=== PATIENT | male | born 1950 | race Caucasian/White ===

== ENCOUNTER 2022-01-02 06:51 | Inpatient (IN) | payer MEDICARE, BC, OTHER, SELFPAY ==
[2022-01-02] VITALS (9 sets, daily range): BP systolic 124–157; BP diastolic 64–82; PULSE 53–104; RESP 11–22; TEMP 35.8–37.3; O2SAT 92–100; BMI 34.0
--- NOTE | 2022-01-02 06:51 | ED.GIBLEED ---
HPI - GI Bleed General Chief complaint: Nausea/Vomiting/Diarrhea Stated complaint: Gi Bleed Time Seen by Provider: 01/02/22 06:51 History of Present Illness HPI Narrative: 71M nonsmoker medical history sleep apnea on CPAP, GERD, hyperlipidemia, hypothyroid, gout, allergic rhinitis with history of esophageal dilatation, hypertension with recent presentation to [facility] for dysphagia presents by EMS in guarded condition. He was feeling a bit dizzy and under the weather yesterday and this morning has had multiple episodes of bright red emesis. On arrival EMS found stable blood pressure but patient was diaphoretic, pale, surrounded by blood and with heart rate in the 40s, this has improved by his arrival here. He reports no alcohol history and denies the use of any blood thinners or NSAIDs. He denies any history of liver disease or known esophageal varices. He denies any history of the same. He is feeling a bit short of breath and lightheaded but denies any chest pain. Review of Systems Review of Systems Narrative: GENERAL: See HPI HEENT: Denies sinus pain, ear pain, sore throat, difficulty swallowing, dizziness. RESPIRATORY: Denies dyspnea, cough, wheezing, hemoptysis, sputum. CARDIOVASCULAR: Denies chest pain, palpitations, orthopnea, edema, GASTROINTESTINAL: See HPI : Denies dysuria, frequency, incontinence, hematuria, urinary retention. MUSCULOSKELETAL: denies weakness, joint pain, or bony pain SKIN: Denies rash, skin lesions, or other NEUROLOGIC: See HPI PSYCHIATRIC: No concerning psychosocial issues. 12 point review of systems is negative except for those stated above Patient History Social History Smoking Status: Never smoker Exam Narrative Exam Narrative: GENERAL: [71] year old patient appears stated age. Well-developed patient, in obvious distress, clearly not feeling well, slightly pale and covered in fresh blood with fresh clots HEAD: Atraumatic. Normocephalic. EYES: Pupils equal round and reactive. Extraocular motions intact. No scleral icterus. No injection or drainage. ENT: Nose without bleeding, purulent drainage. Throat without erythema, tonsillar hypertrophy or exudate. Airway patent. NECK: Trachea midline. Non tender CARDIOVASCULAR: Regular rate and rhythm without murmurs, gallops, or rubs. RESPIRATORY: Clear to auscultation. Breath sounds equal bilaterally. No wheezes, rales, or rhonchi. GASTROINTESTINAL: Abdomen soft, minimal tenderness in the epigastrium, nondistended. EXTREMITIES: No edema or joint tenderness. BACK: Nontender without deformity or crepitance. No flank tenderness. NEURO: AOx3. SKIN: No rash or erythema of visible areas Initial Vital Signs Initial Vital Signs: Vital Signs Temperature 98.8 F 01/02/22 06:57 Pulse Rate 75 01/02/22 06:57 Respiratory Rate 22 01/02/22 06:57 Blood Pressure 157/75 H 01/02/22 06:57 Pulse Oximetry 94 01/02/22 06:57 Oxygen Delivery Method 01/02/22 06:57 Course Course Course Narrative: 0725 -records obtained from [facility], there is reference to EGD from May with diagnosis of GERD, no mention of ulcers or varices Orders Ordered: ED Orders 01/02/22 07:04 Complete Blood Count AUTO DIFF Stat Comprehensive Metabolic Panel Stat Lactate (Lactic Acid) Stat Partial Thromboplastin Time Stat Prothrombin Time INR Stat Troponin & CK Cardiac Panel Stat Type and Screen Stat 01/02/22 07:06 COVID19 -Nasal RAPID/Pre-Proc Stat 01/02/22 08:16 Consult to General Surgery Routine 01/02/22 08:30 HH [Hemoglobin and Hematocrit] Stat 01/03/22 05:00 BMP [Basic Metabolic Panel] DAILY CBC Auto Diff [Complete Blood Count AUTO DIFF] DAILY 01/04/22 05:00 BMP [Basic Metabolic Panel] DAILY CBC Auto Diff [Complete Blood Count AUTO DIFF] DAILY 01/05/22 05:00 BMP [Basic Metabolic Panel] DAILY CBC Auto Diff [Complete Blood Count AUTO DIFF] DAILY Acetaminophen (Acetaminophen 325 Mg Tablet) 650 mg PO Q6HR PRN PRN Reason: Fever/Mild Pain (1-3) Ondansetron HCl (Ondansetron 4 Mg/2 Ml Inj) 4 mg IV Q6HR CHRISTIANO Pantoprazole Sodium (Pantoprazole 40 Mg Vial) 40 mg IV BID CHRISTIANO Polyethylene Glycol (Polyethylene Glycol 3350 17 Gm Powd.Pack) 17 gm PO DAILY PRN PRN Reason: Constipation Sennosides (Sennosides 8.6 Mg Tablet) 8.6 mg PO BID PRN PRN Reason: Constipation Discontinued Medications Ceftriaxone Sodium 2,000 mg/ (Sodium Chloride) 100 mls @ 200 mls/hr IV NOW ONE Stop: 01/02/22 08:12 Ondansetron HCl (Ondansetron 4 Mg/2 Ml Inj) 4 mg IV NOW ONE Stop: 01/02/22 06:52 Last Admin: 01/02/22 07:07 Dose: 4 mg Pantoprazole Sodium (Pantoprazole 40 Mg Vial) 80 mg IV NOW ONE Stop: 01/02/22 06:52 Last Admin: 01/02/22 07:07 Dose: 80 mg Reevaluation(s) Reevaluation #1: patient had one episode of hematemesis here with about 100mL of dark blood, patient feels better afterwards Consultations Consultation #1: Discussed with on-call General surgery (Dr. Melissa), request patient remain NPO, on PPI, admission to hospitalist and he can likely take him to endoscopy suite around lunch Consultation #2: Hospitalist happy to accept Vital Signs Vital signs: Vital Signs - 8 hr 01/02/22 06:57 01/02/22 07:12 Temperature 98.8 F Pulse Rate 75 71 Respiratory Rate 22 16 Blood Pressure 157/75 H 140/70 Pulse Oximetry 94 94 Oxygen Delivery Method Room Air Room Air MDM - GI Bleed Lab Data Result diagrams: 01/02/22 07:04 01/02/22 07:04 Labs: Lab Results 01/02/22 01/02/22 01/02/22 Range/Units 07:04 07:04 07:04 WBC 10.0 (4.5-11.0) X10^3/uL RBC 4.14 L (4.5-5.9) X10^6/uL Hgb 12.6 L (13.5-17.5) g/dL Hct 37.5 L (41-53) % MCV 90.6 (80-100) fL MCH 30.4 (26-34) PG MCHC 33.6 (30-36) % RDW 13.3 (11.6-14.8) % Plt Count 246 (150-400) X10^3/uL Neut % (Auto) 76.5 H (50-75) % Lymph % (Auto) 15.7 L (25-40) % [place] % (Auto) 6.5 (3-14) % Eos % (Auto) 1.1 L (2-4) % Baso % (Auto) 0.2 (0-2) % Neut # (Auto) 7700 H (9746-2003) /uL Lymph # (Auto) 1600 (4772-6403) /uL [place] # (Auto) 600 (0-900) /uL Eos # (Auto) 100 (0-450) /uL Baso # (Auto) 0 (0-100) /uL PT 12.9 H (10.1-12.7) SECONDS INR 1.1 (0.9-1.3) APTT 24 L (26-36) SECONDS Sodium 135 L (137-145) mmol/L Potassium 3.8 (3.4-5.1) mmol/L Chloride 102 (98-107) mmol/L Carbon Dioxide 24 (22-32) mmol/L BUN 32 H (9-20) mg/dL Creatinine 1.07 (0.66-1.25) mg/dL Estimated GFR > 60 (>60) mL/min BUN/Creatinine Ratio 29.9 H (6-22) Glucose 165 H (80-110) mg/dL Lactate (0.7-2.1) mmol/L Calcium 8.0 L (8.4-10.2) mg/dL Total Bilirubin 0.7 (0.2-1.3) mg/dL AST 33 (17-59) IU/L ALT 19 (<50) IU/L Alkaline Phosphatase 59 (38-126) U/L Total Creatine Kinase 95 (55-170) U/L CK-MB (CK-2) TNP CK-MB (CK-2) Rel Index TNP Troponin I < 0.012 (0.01-0.034) ng/mL Total Protein 6.7 (6.3-8.2) g/dL Albumin 3.8 (3.5-5.0) g/dL Globulin 2.9 (1.7-4.1) g/dL Albumin/Globulin Ratio 1.3 (1.0-2.8) SARS-CoV-2 (PCR) (Negative) Blood Type Antibody Screen 01/02/22 01/02/22 01/02/22 Range/Units 07:04 07:04 07:06 WBC (4.5-11.0) X10^3/uL RBC (4.5-5.9) X10^6/uL Hgb (13.5-17.5) g/dL Hct (41-53) % MCV (80-100) fL MCH (26-34) PG MCHC (30-36) % RDW (11.6-14.8) % Plt Count (150-400) X10^3/uL Neut % (Auto) (50-75) % Lymph % (Auto) (25-40) % [place] % (Auto) (3-14) % Eos % (Auto) (2-4) % Baso % (Auto) (0-2) % Neut # (Auto) (8016-6600) /uL Lymph # (Auto) (8637-0798) /uL [place] # (Auto) (0-900) /uL Eos # (Auto) (0-450) /uL Baso # (Auto) (0-100) /uL PT (10.1-12.7) SECONDS INR (0.9-1.3) APTT (26-36) SECONDS Sodium (137-145) mmol/L Potassium (3.4-5.1) mmol/L Chloride (98-107) mmol/L Carbon Dioxide (22-32) mmol/L BUN (9-20) mg/dL Creatinine (0.66-1.25) mg/dL Estimated GFR (>60) mL/min BUN/Creatinine Ratio (6-22) Glucose (80-110) mg/dL Lactate 2.8 H (0.7-2.1) mmol/L Calcium (8.4-10.2) mg/dL Total Bilirubin (0.2-1.3) mg/dL AST (17-59) IU/L ALT (<50) IU/L Alkaline Phosphatase (38-126) U/L Total Creatine Kinase (55-170) U/L CK-MB (CK-2) CK-MB (CK-2) Rel Index Troponin I (0.01-0.034) ng/mL Total Protein (6.3-8.2) g/dL Albumin (3.5-5.0) g/dL Globulin (1.7-4.1) g/dL Albumin/Globulin Ratio (1.0-2.8) SARS-CoV-2 (PCR) Negative (Negative) Blood Type A Positive Antibody Screen Negative Discharge Plan Departure Patient Disposition: Admitted as Observation Clinical Impression: Acute upper GI bleed Admit Date/Time: 01/02/22 08:15 Admit Provider: Nelson Curiel
[2022-01-02] MEDS: PANTOPRAZOLE 40 MG VIAL 80 MG IV (07:07)
[2022-01-02] MEDS: ONDANSETRON 4 MG/2 ML INJ IV ×4 (07:07→23:30)
[2022-01-02 07:12] LABS: Add Manual Diff / Slide Review NO; Basophils Absolute Auto 0 /uL (0-100); Basophils Percent Auto 0.2 % (0-2); Eosinophils Absolute Auto 100 /uL (0-450); Eosinophils Percent Auto 1.1 % (2-4); Hematocrit 37.5 % (41-53); Hemoglobin 12.6 g/dL (13.5-17.5); Lymphocytes Absolute Auto 1600 /uL (1100-4500); Lymphocytes Percent Auto 15.7 % (25-40); Mean Corpuscular HGB Conc 33.6 % (30-36); Mean Corpuscular Hemoglobin 30.4 PG (26-34); Mean Corpuscular Volume 90.6 fL (80-100); Monocytes Absolute Auto 600 /uL (0-900); Monocytes Percent Auto 6.5 % (3-14); Neutrophils Absolute Auto 7700 /uL (1500-7000); Neutrophils Percent Auto 76.5 % (50-75); Platelet Count 246 X10^3/uL (150-400); Red Blood Cell Count 4.14 X10^6/uL (4.5-5.9); Red Cell Distribution Width 13.3 % (11.6-14.8)
[2022-01-02 07:19] LABS: INR 1.1 (0.9-1.3); Prothrombin Time 12.9 SECONDS (10.1-12.7)
[2022-01-02 07:21] LABS: PTT Partial Thromboplastin Tim 24 SECONDS (26-36)
[2022-01-02 07:23] LABS: Lactate (Lactic Acid) 2.8 mmol/L (0.7-2.1)
[2022-01-02 07:25] LABS: Alanine Aminotransferase 19 IU/L (<50); Albumin 3.8 g/dL (3.5-5.0); Albumin Globulin Ratio 1.3 (1.0-2.8); Alkaline Phosphatase 59 U/L (38-126); Aspartate Aminotransferase 33 IU/L (17-59); BUN Creatinine Ratio 29.9 (6-22); Bilirubin Total 0.7 mg/dL (0.2-1.3); Blood Urea Nitrogen 32 mg/dL (9-20); Carbon Dioxide 24 mmol/L (22-32); Chloride 102 mmol/L (98-107); Creatine Kinase 95 U/L (55-170); Estimated Glomerular Filt Rate > 60 mL/min (>60); Globulin 2.9 g/dL (1.7-4.1); Glucose 165 mg/dL (80-110); Potassium 3.8 mmol/L (3.4-5.1); Sodium 135 mmol/L (137-145); Total Protein 6.7 g/dL (6.3-8.2)
[2022-01-02 07:27] LABS: HEMOLYSIS 76 (0-50)
[2022-01-02 07:35] LABS: Troponin I < 0.012 ng/mL (0.01-0.034)
[2022-01-02 07:36] LABS: COVID19 -Nasal RAPID Negative (Negative)
--- NOTE | 2022-01-02 08:21 | P.HP_ITS ---
History of Present Illness History of Present Illness Date Patient Seen: 01/02/22 Time Patient Seen: 16:00 Chief complaint: Gi Bleed Narrative: Carrington García is a 71-year-old male past medical history of esophageal stricture s/p dilation in May 2021, GERD, COLT, hypothyroidism, hyperlipidemia and hypertension who presents with hemoptysis, throat swelling and hematemesis. Patient notes he first developed hemoptysis of bright red blood 2 days ago and has also had swelling of his tongue and throat for the past week. Yesterday he then had multiple episodes of maroon colored vomitus. Patient is not on anticoagulants. Denies any difficulty breathing. No history of stomach ulcers. Denies any abdominal pain or nausea. Is at the bedside who also states for the past several weeks he has had a ?rattling in his chest? with breathing. He denies difficulty swallowing but reports some speech difficulty and that his voice is muffled. Patient History Comment: esophageal stricture s/p dilation in May 2021, GERD, COLT, hypothyroidism, hyperlipidemia and hypertension Family & Social History Safety & Behavioral: Feels Safe in Current Yes Environment Been Physically Hurt or No Threatened By a Person Tobacco & Substance use: Smoking Status Never smoker Substance Use Type does not use Meds Home Medications and Allergies Allergies Allergy/AdvReac Type Severity Reaction Status Date / Time codeine Allergy Intermediate Vomiting Verified 01/02/22 09:54 Review of Systems Review of Systems Narrative: All other systems reviewed with the patient and are negative unless otherwise stated. Exam Vital Signs (past 8 hours): - 01/02/22 06:57 01/02/22 07:12 Temperature 98.8 F Pulse Rate 75 71 Respiratory Rate 22 16 Blood Pressure 157/75 H 140/70 Pulse Oximetry 94 94 Oxygen Delivery Method Room Air Room Air Oxygen Delivery Method Room Air Narrative Exam Narrative: GEN: no acute distress, voice is muffled HEENT: moist mucous membranes, PERRL, no abnormality on visualization of posterior pharynx NECK: Bilateral fullness of the neck without pain to palpation CV: regular rate and rhythm, no murmurs PULM: clear bilaterally ABD: soft, nontender, nondistended, no organomegaly EXT: warm and well perfused with no edema NEURO: awake, alert, oriented, no focal deficits Objective Labs Result Diagrams: 01/02/22 08:24 01/02/22 07:04 Labs: Laboratory Results - last 24 hr 01/02/22 01/02/22 01/02/22 07:04 07:04 07:04 WBC 10.0 RBC 4.14 L Hgb 12.6 L Hct 37.5 L MCV 90.6 MCH 30.4 MCHC 33.6 RDW 13.3 Plt Count 246 Neut % (Auto) 76.5 H Lymph % (Auto) 15.7 L [place] % (Auto) 6.5 Eos % (Auto) 1.1 L Baso % (Auto) 0.2 Neut # (Auto) 7700 H Lymph # (Auto) 1600 [place] # (Auto) 600 Eos # (Auto) 100 Baso # (Auto) 0 PT 12.9 H INR 1.1 APTT 24 L Sodium 135 L Potassium 3.8 Chloride 102 Carbon Dioxide 24 BUN 32 H Creatinine 1.07 Estimated GFR > 60 BUN/Creatinine Ratio 29.9 H Glucose 165 H Lactate Calcium 8.0 L Total Bilirubin 0.7 AST 33 ALT 19 Alkaline Phosphatase 59 Total Creatine Kinase 95 CK-MB (CK-2) TNP CK-MB (CK-2) Rel Index TNP Troponin I < 0.012 Total Protein 6.7 Albumin 3.8 Globulin 2.9 Albumin/Globulin Ratio 1.3 SARS-CoV-2 (PCR) Blood Type Antibody Screen 01/02/22 01/02/22 01/02/22 07:04 07:04 07:06 WBC RBC Hgb Hct MCV MCH MCHC RDW Plt Count Neut % (Auto) Lymph % (Auto) [place] % (Auto) Eos % (Auto) Baso % (Auto) Neut # (Auto) Lymph # (Auto) [place] # (Auto) Eos # (Auto) Baso # (Auto) PT INR APTT Sodium Potassium Chloride Carbon Dioxide BUN Creatinine Estimated GFR BUN/Creatinine Ratio Glucose Lactate 2.8 H Calcium Total Bilirubin AST ALT Alkaline Phosphatase Total Creatine Kinase CK-MB (CK-2) CK-MB (CK-2) Rel Index Troponin I Total Protein Albumin Globulin Albumin/Globulin Ratio SARS-CoV-2 (PCR) Negative Blood Type A Positive Antibody Screen Negative Assessment & Plan Assessment & Plan narrative: # acute hemoptysis and hematemesis -per patient multiple episodes of bright red hemoptysis followed by hematemesis starting 2 days ago -concern for upper pharyngeal pathology so CT soft tissue neck CT chest ordered -CT soft tissue neck shows posterior tongue mass protruding into the trachea concerning for malignancy -Dr. Melissa, general surgery initially consulted but will sign off -Dr. Campbell, ENT called and recommended starting Decadron 20 IV loading dose then 6 mg IV Q 8 hours, also recommended Unasyn IV -clear liquid diet -Dr. Zhang ENT to see tomorrow and perform direct visualization scope of mass and will likely require biopsy in OR # mild acute blood loss anemia -hemoglobin 12.6 on arrival to ED, repeat 13 -monitor hemoglobin # hypothyroidism, chronic #hyperlipidemia, chronic #hypertension, chronic Code status is full code. COVID negative. DVT prophylaxis with SCDs. Proxy is Pat. I have reviewed home meds and used all available resources to reconcile the home meds. Time Spent With Patient Critical Care time: I spent a total of [] minutes of critical care time on this patient's care today; this time is exclusive of procedural time.
[2022-01-02 08:31] LABS: Hematocrit 38.7 % (41-53)
[2022-01-02 09:04] LABS: Reflexed Lactate in 2 Hours Y
[2022-01-02] MEDS: cefTRIAXone 2,000 MG in SODIUM CHLORIDE 0.9% 100 ML 200 MG IV (09:10)
[2022-01-02 10:34] LABS: Lactate 2HR (Lactic Acid Rflx) 1.7 mmol/L (0.7-2.1)
[2022-01-02] MEDS: SODIUM CHLORIDE 0.9% 1,000 ML 100 ML IV (11:01)
--- NOTE | 2022-01-02 14:15 | DI.CT.S_ITS ---
PROCEDURE: CT SOFT TISSUE NECK W CON INDICATIONS: tongue and neck swelling, difficulty speaking TECHNIQUE: After the administration of intravenous contrast, 3.0 mm axial sections acquired from the sella to the aortic arch. Additional oblique axial 3.0 mm sections acquired through the pharynx. 3 mm thick coronal and sagittal reformats were generated. For radiation dose reduction, the following was used: automated exposure control. COMPARISON: None. FINDINGS: Image quality: Excellent. Lymph nodes: No enlarged lymph nodes seen throughout the neck. Vessels: Visualized vasculature appears patent. Neck spaces: There is asymmetric soft tissue thickening extending from the posterior base of tongue in the suprahyoid region along the right side of the posterior hyoid with effacement of the trachea and slight leftward deviation. There is decreased pneumatization and mass effect on the right piriform sinus. Glands: The parotid and submandibular glands appear normal. Thyroid gland is unremarkable. Miscellaneous: Visualized brain and orbits appear normal. Lung apices appear clear. Superficial soft tissues appear normal. Bones: No suspicious bony lesions. Visualized sinuses and mastoids appear unremarkable. IMPRESSION: Asymmetric soft tissue density from the base of tongue extending posteriorly with effacement of the trachea with slight right to left mass effect as well as mass effect on the right piriform sinus. Appearance is concerning for malignancy and direct visualization with ENT is recommended. Dictated by: Brittani Lord M.D. on 01/02/2022 at 16:59 Approved by: Brittani Lord M.D. on 01/02/2022 at 17:02
--- NOTE | 2022-01-02 14:43 | DI.CT.S_ITS ---
PROCEDURE: CT CHEST W CON INDICATIONS: hemoptysis TECHNIQUE: After the administration of intravenous contrast, 5 mm thick sections acquired from the pulmonary apices to the posterior costophrenic angles. 1 mm axial lung, 5 mm thick coronal and sagittal reformats and 7 mm axial MIP were acquired. For radiation dose reduction, the following was used: automated exposure control, adjustment of mA and/or kV according to patient size. COMPARISON: [facility], CT, CT SOFT TISSUE NECK W CON, 01/02/2022, 14:23. FINDINGS: Image quality: Excellent. Lungs and pleura: No acute air space opacities. No pleural effusions or pneumothorax. Central and peripheral airways are patent and normal in caliber. Mediastinum: Heart size is enlarged. No pericardial effusion. No mediastinal or hilar adenopathy by size criteria. Thoracic aorta and central pulmonary arteries are normal in size. Esophagus is normal in caliber. No hiatal hernia. Bones and chest wall: No suspicious bony lesions. No vertebral body compression fractures. No axillary or supraclavicular adenopathy by size criteria. Thyroid gland is unremarkable . Miscellaneous: There is asymmetric soft tissue densities the level of the hyoid. Abdomen: Visualized upper abdominal solid organs appear normal. Upper abdominal bowel loops are normal in caliber. IMPRESSION: Lungs are clear. Asymmetric soft tissue densities level hyoid. Please see CT neck report of 01/02/2022 for further details. Dictated by: Brittani Lord M.D. on 01/02/2022 at 16:48 Approved by: Brittani Lord M.D. on 01/02/2022 at 16:50
--- NOTE | 2022-01-02 15:08 | PC.NURSE ---
Pt arrived from ED at approximately 0900 this a.m. VSS, afebrile at RA. He is A&OX3, afebrile on RA. He is lethargic due to not sleeping overnight and having bloody vomit. He is kept NPO and zofran given as scheduled q 6 hours. He c/o nausea with movement and ambulating to BR. He is w/o emesi this a.m. He has x1 BM, this afternoon. He c/o mild RIOS this afternoon but declines wanting to swallow any pills. He is taken for a CT scan this afternoon. GI consult in place. IVF NS running at 100 ml/hr. Continuous monitoring. Bed alarm on. Items within reach. frequent rounding.
[2022-01-02] MEDS: DEXAMETHASONE 10 MG/ML VIAL IV ×2 (17:00→18:47)
[2022-01-02] MEDS: AMPICILLIN/SULBACTAM 3 GM 3 GM in SODIUM CHLORIDE 0.9% 100 ML IV ×2 (18:48→23:29)
[2022-01-03] VITALS: BP 138/79; PULSE 95; RESP 15; TEMP 36.7; O2SAT 96
[2022-01-03] MEDS: DEXAMETHASONE 10 MG/ML VIAL 6 MG IV ×3 (02:52→19:31)
[2022-01-03 06:00] VITALS: BP 157/91; PULSE 79; RESP 19; TEMP 36.3; O2SAT 97
[2022-01-03] MEDS: ONDANSETRON 4 MG/2 ML INJ IV ×3 (06:07→19:31)
[2022-01-03] MEDS: AMPICILLIN/SULBACTAM 3 GM 3 GM in SODIUM CHLORIDE 0.9% 100 ML IV ×3 (06:07→19:31)
[2022-01-03 07:37] LABS: Add Manual Diff / Slide Review NO; Basophils Absolute Auto 0 /uL (0-100); Eosinophils Absolute Auto 0 /uL (0-450); Hematocrit 36.9 % (41-53); Hemoglobin 12.6 g/dL (13.5-17.5); Lymphocytes Absolute Auto 700 /uL (1100-4500); Lymphocytes Percent Auto 9.7 % (25-40); Mean Corpuscular Hemoglobin 30.4 PG (26-34); Mean Corpuscular Volume 89.5 fL (80-100); Monocytes Absolute Auto 100 /uL (0-900); Monocytes Percent Auto 1.2 % (3-14); Neutrophils Absolute Auto 6400 /uL (1500-7000); Neutrophils Percent Auto 89.1 % (50-75); Platelet Count 254 X10^3/uL (150-400); Red Blood Cell Count 4.13 X10^6/uL (4.5-5.9); Red Cell Distribution Width 13.6 % (11.6-14.8); White Blood Cell Count 7.2 X10^3/uL (4.5-11.0)
[2022-01-03 07:43] LABS: BUN Creatinine Ratio 21.1 (6-22); Blood Urea Nitrogen 23 mg/dL (9-20); Carbon Dioxide 26 mmol/L (22-32); Chloride 103 mmol/L (98-107); Estimated Glomerular Filt Rate > 60 mL/min (>60); Glucose 149 mg/dL (80-110); HEMOLYSIS < 15 (0-50); Potassium 4.1 mmol/L (3.4-5.1); Sodium 140 mmol/L (137-145)
--- NOTE | 2022-01-03 07:55 | P.PN_ITS ---
Subjective Subjective Date Patient Seen: 01/03/22 Time Patient Seen: 09:00 Interval history: Patient had mild streaky blood in sputum but otherwise no hemoptysis overnight or hematemesis. ENT will do upper laryngoscopy at noon today. Exam Vital Signs (past 8 hours): - 01/03/22 00:00 01/03/22 06:00 Temperature 98.0 F 97.3 F L Pulse Rate 95 H 79 Respiratory Rate 15 19 Blood Pressure 138/79 157/91 H Pulse Oximetry 96 97 Oxygen Delivery Method Room Air Oxygen Flow Rate 0 Narrative Exam Narrative: GEN: no acute distress, voice is muffled HEENT: moist mucous membranes, PERRL, no abnormality on visualization of posterior pharynx NECK: Bilateral fullness of the neck without pain to palpation CV: regular rate and rhythm, no murmurs PULM: clear bilaterally ABD: soft, nontender, nondistended, no organomegaly EXT: warm and well perfused with no edema NEURO: awake, alert, oriented, no focal deficits Objective Labs Result Diagrams: 01/03/22 06:30 01/03/22 06:30 Labs: Laboratory Results - last 24 hr 01/02/22 01/02/22 01/02/22 07:04 08:24 10:10 WBC RBC Hgb 13.0 L Hct 38.7 L MCV MCH MCHC RDW Plt Count Neut % (Auto) Lymph % (Auto) [place] % (Auto) Eos % (Auto) Baso % (Auto) Neut # (Auto) Lymph # (Auto) [place] # (Auto) Eos # (Auto) Baso # (Auto) Sodium Potassium Chloride Carbon Dioxide BUN Creatinine Estimated GFR BUN/Creatinine Ratio Glucose Lactate 1.7 Calcium Blood Type A Positive Antibody Screen Negative 01/03/22 01/03/22 06:30 06:30 WBC 7.2 RBC 4.13 L Hgb 12.6 L Hct 36.9 L MCV 89.5 MCH 30.4 MCHC 34.0 RDW 13.6 Plt Count 254 Neut % (Auto) 89.1 H Lymph % (Auto) 9.7 L [place] % (Auto) 1.2 L Eos % (Auto) 0.0 L Baso % (Auto) 0.0 Neut # (Auto) 6400 Lymph # (Auto) 700 L [place] # (Auto) 100 Eos # (Auto) 0 Baso # (Auto) 0 Sodium 140 Potassium 4.1 Chloride 103 Carbon Dioxide 26 BUN 23 H Creatinine 1.09 Estimated GFR > 60 BUN/Creatinine Ratio 21.1 Glucose 149 H Lactate Calcium 9.0 Blood Type Antibody Screen [facility] Social History household members: spouse Smoking Status: Never smoker alcohol intake: current Assessment & Plan Assessment & Plan narrative: # acute hemoptysis and hematemesis secondary to epiglottal mass -CT soft tissue neck shows posterior tongue mass protruding into posterior pharyngeal space -Dr. Campbell, ENT called and recommended -continue decadron 6 mg IV Q 8 hours amd Unasyn 3g q6h -NPO except ice chips -Dr. 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 COVID negative. DVT prophylaxis with SCDs. Proxy is Pat. I have reviewed home meds and used all available resources to reconcile the home meds. Dispo: Pending transfer to higher level of care for surgery to remove mass. Time Spent With Patient Critical Care time: I spent a total of [] minutes of critical care time on this patient's care today; this time is exclusive of procedural time.
--- NOTE | 2022-01-03 08:29 | PC.NURSE ---
Addendum entered by Hattie Taylor R.N. 01/03/22 14:27: ENT into see patient and took a look down his throat, at mass. He talked to and they are going to try and get him transferred to a higher level of care hospital for this. is at bedside, and supportive of care. Original Note: Assess- Patient is alert and oriented x4, he is cooperative and pleasant with care. Patient denies pain, his throat is swollen and his speech is slightly affected from swelling. Up independently/sba. He is waiting for breakfast and resting comfortably, iv heplocked.
[2022-01-03] MEDS: LOSARTAN 50 MG TABLET PO (10:19)
[2022-01-03] MEDS: LEVOTHYROXINE 100 MCG TABLET PO (10:19)
[2022-01-03] MEDS: allopurinoL 300 MG TABLET PO (10:19)
[2022-01-03 12:00] VITALS: BP 132/65; PULSE 79; RESP 16; TEMP 37.4; O2SAT 96
--- NOTE | 2022-01-03 12:19 | PM.CN ---
History of Present Illness Consult details Date Patient Seen: 01/02/22 Chief complaint: Gi Bleed Narrative: Mr. García is a 71-year-old man who presented to the emergency department yesterday for hemoptysis and hematemesis. He started noticing a swelling in his posterior oropharynx and a change in his voice about 2 weeks ago. He had an EGD in May at [facility] with a dilation of the esophagus. After his admission to the floor a CT scan of his head and neck was ordered which showed a likely mass arising from the base of the tongue. Dr. Zhang of ENT is expected to see the patient today. Meds Home Medications and Allergies Home Medications Medication Instructions Recorded Confirmed Type allopurinol 300 mg tablet 300 mg PO DAILY 01/03/22 01/03/22 History chlorthalidone 15 mg tablet 15 mg PO DAILY 01/03/22 01/03/22 History (Thalitone) levothyroxine 100 mcg tablet 100 mcg PO DAILY 01/03/22 01/03/22 History losartan 50 mg tablet 50 mg PO DAILY 01/03/22 01/03/22 History simvastatin 20 mg tablet 20 mg PO DAILY 01/03/22 01/03/22 History Allergies Allergy/AdvReac Type Severity Reaction Status Date / Time codeine Allergy Intermediate Vomiting Verified 01/02/22 09:54 Exam Vital Signs (past 8 hours): - 01/03/22 06:00 Temperature 97.3 F L Pulse Rate 79 Respiratory Rate 19 Blood Pressure 157/91 H Pulse Oximetry 97 Oxygen Delivery Method Room Air Oxygen Flow Rate 0 Narrative Exam Narrative: Obese man with altered voice Objective Labs Result Diagrams: 01/03/22 06:30 01/03/22 06:30 Labs: Laboratory Results - last 24 hr 01/03/22 01/03/22 06:30 06:30 WBC 7.2 RBC 4.13 L Hgb 12.6 L Hct 36.9 L MCV 89.5 MCH 30.4 MCHC 34.0 RDW 13.6 Plt Count 254 Neut % (Auto) 89.1 H Lymph % (Auto) 9.7 L [place] % (Auto) 1.2 L Eos % (Auto) 0.0 L Baso % (Auto) 0.0 Neut # (Auto) 6400 Lymph # (Auto) 700 L [place] # (Auto) 100 Eos # (Auto) 0 Baso # (Auto) 0 Sodium 140 Potassium 4.1 Chloride 103 Carbon Dioxide 26 BUN 23 H Creatinine 1.09 Estimated GFR > 60 BUN/Creatinine Ratio 21.1 Glucose 149 H Calcium 9.0 PFSH Social History household members: spouse Tobacco & Substance Use Smoking Status: Never smoker alcohol intake: current Assessment & Plan Assessment and plan (1) Mass of tongue: Status: Acute Plan Await evaluation and biopsy of the mass by Dr. Zhang. If the mass turns out to be malignant laid referral to Medical Oncology. Surgery will sign off but can be reconsulted if enteric access and tracheostomy are recommended. Time Spent With Patient Critical Care time: I spent a total of [] minutes of critical care time on this patient's care today; this time is exclusive of procedural time.
--- NOTE | 2022-01-03 13:21 | CM.DANOTE ---
DCP Assessment: Payor: Medicare, Blue CrossManny Pt is a 71 y.o. M who presented to the ER with N/V of bright red emesis. Pt admitted as observation for further evaluation and management of symptoms. DCP met with pt this afternoon to discuss discharge needs. Pt sitting up in bed with at the bedside. DCP introduced self and role. Pt states he lives in [place] with his , Pat. Pt states he is independent at baseline and still drives POV. Pt states to DCP that the MD was just in the room and it was decided that he will be attempting a transfer for a higher level facility for his current condition. Pt did not have any other needs at this time. White board was updated to call if needed. Pt thankful for the discussion. P: Per MD, pt is needing higher level of care. Healthcare team to look for an open bed for transfer. No other needs at this time. DCP to continue to follow. Shayla Manzo RN/LORENA Discharge Planning/Care Management CM Discharge Assessment Start: 01/03/22 12:47 Freq: Status: Active Protocol: Document 01/03/22 12:47 RASHEED (Rec: 01/03/22 12:51 [id number]) Discharge Planning Assessment Assigned Senior Reliability Engineer Shayla Manzo RN/LORENA Advance Directives? No Advance Directives on File No History Provided By Patient Prior Living Arrangements House Household Members spouse Type of transporation used prior to Drives own vehicle admit Independent with ADL's Yes Is patient alert and oriented? Yes Discharge Plan Transfer to Higher Level of Care Transportation Arrangement Ambulance Referrals Initiated None needed Whiteboard Updated in Patient Room with Yes name and ext. # of Senior Reliability Engineer Comment Instructed to call Review Status In Process Please Provide Date Initial DC 01/03/22 Assessment Was Performed Next Review Type Continued Stay Review
--- NOTE | 2022-01-03 15:30 | ST.IPCSEOM ---
Visit Care Team Role Provider Type Lottie Durant DO Primary Care Provider Non-Staff Specialty: Internal Medicine Address: [address] [place], [address] Email: Jose R Melissa MD Other Providers Physician Specialty: General Surgery Address: [address] [place] [address], [address], [place], [address] Email: [email or web address] Isaias Zhang MD Other Providers Physician Specialty: Ear, Nose, Throat Address: [address] [place] [address], [address] Email: [email or web address] Guillermo Javier DO Emergency Provider Physician Referring Provider Specialty: Emergency Medicine Address: [address] [place] [address], [address] Email: [email or web address] Nelson Curiel DO Admit Provider Physician Attending Provider Specialty: Internal Medicine Address: [address] [place] [address], [address] Email: [email or web address] Current Diagnoses Other diseases of tongue (01/03/22) Speech-Language Pathology Swallow Evaluation [employer] Clinical Swallow Evaluation Start: 01/03/22 14:24 Freq: Status: Active Protocol: Document 01/03/22 14:25 ZS (Rec: 01/03/22 14:30 ZS [id number]) Clinical Swallow Evaluation Session Time Visit Start Time 13:45 Visit Stop Time 14:05 Total Visit Minutes 20 Visit Information Visit Number 1 Setting Assessment Location Acute Care Visit Type Note Type Initial evaluation Next Note Type Next Note Type Treatment Note Patient Information Identification Type Name History Per H&P: Carrington García is a 71-year-old male past medical history of esophageal stricture s/p dilation in May 2021, GERD, COLT, hypothyroidism, hyperlipidemia and hypertension who presents with hemoptysis, throat swelling and hematemesis. Patient notes he first developed hemoptysis of bright red blood 2 days ago and has also had swelling of his tongue and throat for the past week. Yesterday he then had multiple episodes of maroon colored vomitus. Patient is not on anticoagulants. Denies any difficulty breathing. No history of stomach ulcers. Denies any abdominal pain or nausea. Is at the bedside who also states for the past several weeks he has had a ? rattling in his chest? with breathing. He denies difficulty swallowing but reports some speech difficulty and that his voice is muffled . CT soft tissue neck shows posterior tongue mass protruding into the trachea concerning for malignancy. Subjective Observations Pt was seated upright in bed with at bedside when SPORTS BOOKMAKER arrived. He agreed to participate in clinical swallow evaluation. Reported by Patient Other Symptoms Choking,Coughing,Difficulty swallowing liquids,Difficulty swallowing pills,Difficulty swallowing solids Current Diet Nothing by mouth Baseline Feeding Method Independent in self-feeding Results Pt is currently NPO, ice chips okay, in case they are able to perform surgery tomorrow. Otherwise, he is on a clear liquid diet. Objective Assessment Mental Status Alert,Responsive,Cooperative Oral Integrity WFL Dentition Within normal limits,Upper dentures/partials,Lower dentures/partials Lip Function Within normal limits Observation of Lips at Rest Symmetrical Pucker Within normal limits Lip Retraction Within normal limits Alternating Pucker/Lip Retraction Within normal limits Tongue Function Mild impairment Observations of Tongue at Rest Within normal limits Tongue Protrusion Reduced range of motion Tongue Retraction Within normal limits Jaw Function Within normal limits Observations of Jaw at Rest Within normal limits Jaw Opening Within normal limits Jaw Closing Within normal limits Hard/Soft Palate Function Within normal limits Observations of Hard/Soft Palate Within normal limits Comment Complete oral motor exam with pt. Pt exhibited reduced tongue ROM, likely related to mass on posterior base of tongue. Otherwise, structures were symmetrical at rest and in motion and strength and ROM of lips and jaw were WNL. Voice was atypical per pt, also likely related to mass. Food and Liquid Trials Position During Assessment Upright (90 degrees),In bed Liquids Trialed Ice chips,Thin Administration Type Tea spoon,Cup single sip,Straw ,Self-feeding Oral Impairment Within normal limits Oral Phase Comments Pt reported difficulty chewing and stated his implants are not a great fit and do not line up well so he needs to focus when he chews. No anterior loss of bolus. Pt observed to hold head in slightly elevated position during swallow. When chin tuck position was attempted, pt reported the mass obstructed his airway and it was uncomfortable. Multiple audible swallows to clear a small bolus (about 1-2 tsp of thin water), unclear if this is related to a/p propulsion of bolus or residue in pharynx . Pharyngeal Impairment Severely impaired Pharyngeal Phase Comments Pt reported difficulty swallowing due to mass. Cough observed after thin liquid and throat clear observed after ice chips. Unable to rule out silent aspiration with clinical bedside swallow evaluation. Modified barium swallow study is not recommended at this time as pt 's swallow status will change following surgery to remove mass. Fatigue/Endurance Endurance WNL Comment No concerns for endurance at this time and pt is taking small quantities of liquid at a time. Findings Swallowing Function Oropharyngeal phase dysphagia Comment The pt presents with moderately-severe oropharyngeal dysphagia secondary to a posterior base of tongue mass that protrudes into trachea. Pt exhibited some coughing and throat clearing with thin liquid and ice chips. Unable to rule out silent aspiration with clinical bedside swallow evaluation. Modified barium swallow study to rule out silent aspiration is not recommended at this time as pt 's swallow status will change following surgery to remove mass. Due to concern for aspiration, thickened liquids are not recommended. Chin tuck and head positioning strategies were ineffective due to discomfort related to mass. Tube feeding is not appropriate at this time as pt 's swallowing status will change following surgery. Recommend clear liquid diet and follow-up with speech therapy following surgery to remove mass. Impact on Safety and Functioning Risk for aspiration,Risk for inadequate nutrition/hydration Recommendations Instrumental Assessment No Swallowing Treatment Yes Recommended Solids Nothing by Mouth Recommended Liquids Thin Other Recommendations Clear liquid diet. Safety Precautions/Swallowing Feed only when alert,Reduce Recommendations distractions,Remain upright ( 90 degrees) during all oral intake,Upright position at least 30 minutes after meals, Small bites and sips when eating,Slow rate; swallow between bites,Multiple swallows,Strict oral care after intake Medication Recommendations Not Recommended by Mouth Education Patient/Caregiver Education Described results of evaluation,Patient expressed understanding of evaluation, Patient expressed agreement with goals & treatment plans, Family/caregivers expressed understanding of evaluation, Family/caregivers expressed agreement with goals & treatment plans,Patient expressed understanding of safety precautions,Patient expressed understanding of feeding recommendations,Family /caregivers expressed understanding of safety precautions,Family/caregivers expressed understanding of feeding recommendations, Patient requires further education/training,Family/ caregivers require further education/training Goals Short-term Goals 1. Pt will participate in education regarding swallow musculature and base of tongue purpose in swallow. 2. Pt will participate in continued assessment of swallow following surgery to remove posterior base of tongue mass.
--- NOTE | 2022-01-03 16:44 | DIET.CONS2 ---
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 Pt seen by speech therapy who recommends clear liquid diet due to bulky mass, pt at high risk for dehydration and deteriorating nutrition status related to inadequate oral intake, increasing risk for aspiration, post-surgical PO restrictions after resection of mass and difficulty eating if pt were to need head/neck radiation. Pt would benefit from prophylactic PEG/PEJ tube placement to support nutrition status whether at our institution or that which he receives care under surgical oncology services. Pt currently NPO awaiting surgery or transfer. If pt assigned clear liquid diet- thin liquids only, recc addition of ONS Ensure Clear tid and ONS [place] bid to prop nutrition in thin liquid format. Following for POC. Diet: 01/03/22 12:41 NPO Diet Diet Modifications: NPO Type: NPO except for Ice Chips Electronically Signed by: Sophia Moore 01/03/22 16:44 Clinical Dietitian [address] [address]
[2022-01-03 18:00] VITALS: BP 135/70; PULSE 64; RESP 16; TEMP 36.7; O2SAT 96
--- NOTE | 2022-01-03 20:57 | PM.OP.1 ---
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 Following discussion of the material risks benefits complications and alternatives, he elected to proceed. Surgeon: Isaias Zhang Click Yes if Unassisted: Yes Anesthesia Type: None Operative Notes Findings: 3 cm or greater round soft tissue mass, minimally friable, likely emanating from the laryngeal surface of the epiglottis but difficult visualization, it extends and may originate from the right aryepiglottic fold, left AE fold normal, vocal cords briefly visualized and likely normal. No pooling of secretions, no stridor. Procedure in detail: Following verbal consent, the flexible laryngoscope was passed atraumatically through the right nostril with the above findings noted. Tolerated the procedure well without known complication. Complications: none Post-operative Condition: stable Plan for aftercare: Will investigate option for transfer to a tertiary care center for tumor biopsy/debulking, possible definitive treatment based on pathology.
--- NOTE | 2022-01-03 21:03 | P.CONS_ITS ---
History of Present Illness Consult details Date Patient Seen: 01/03/22 Time Patient Seen: 12:20 Chief complaint: Pharyngeal mass, hematemesis Reason for consult: Pharyngeal mass, hematemesis Requesting provider: Nelson Curiel Narrative: 71-year-old male admitted urgently yesterday for hemoptysis and hematemesis, p rogressive dysphagia over days to weeks or longer. CT neck with contrast from 01/02 report and images reviewed, showing at least a 3 cm mass possibly originating from the base of tongue, no obvious lymphadenopathy. I was consulted for further evaluation, possible biopsy if necessary. On close que stioning he originally underwent EGD 05/2021 with dilation but was complaining of some dysphagia at that point that has progressed ever since. No significant pain, no significant airway obstruction, continues CPAP. Voice has progressively become garbled, no bleeding up until the day prior to admission, however. No otalgia or other ENT complaints. The admission H and P as well as general surgery consultation were each reviewed, including the past medical history medications allergies social history review of systems and labs. Meds Home Medications and Allergies Home Medications Medication Instructions Recorded Confirmed Type allopurinol 300 mg tablet 300 mg PO DAILY 01/03/22 01/03/22 History chlorthalidone 15 mg tablet 15 mg PO DAILY 01/03/22 01/03/22 History (Thalitone) levothyroxine 100 mcg tablet 100 mcg PO DAILY 01/03/22 01/03/22 History losartan 50 mg tablet 50 mg PO DAILY 01/03/22 01/03/22 History simvastatin 20 mg tablet 20 mg PO DAILY 01/03/22 01/03/22 History Allergies Allergy/AdvReac Type Severity Reaction Status Date / Time codeine Allergy Intermediate Vomiting Verified 01/02/22 09:54 Review of Systems Review of Systems Narrative: Negative except as listed in the HPI Exam Vital Signs (past 8 hours): - 01/03/22 18:00 Temperature 98.1 F Pulse Rate 64 Respiratory Rate 16 Blood Pressure 135/70 Pulse Oximetry 96 Oxygen Flow Rate 0 Oxygen Delivery Method Room Air Oxygen Flow Rate 0 Narrative Exam Narrative: Well-developed overweight male in no acute distress. Muffled speech but no stridor, tolerating secretions well. Head is normocephalic atraumatic external ears normal external nose normal nasal cavity normal bilaterally. Oral cavity/oropharynx: Normal, no lesions neck: Soft nontender no discrete masses Objective Labs Result Diagrams: 01/03/22 06:30 01/03/22 06:30 Labs: Laboratory Results - last 24 hr 01/03/22 01/03/22 06:30 06:30 WBC 7.2 RBC 4.13 L Hgb 12.6 L Hct 36.9 L MCV 89.5 MCH 30.4 MCHC 34.0 RDW 13.6 Plt Count 254 Neut % (Auto) 89.1 H Lymph % (Auto) 9.7 L [place] % (Auto) 1.2 L Eos % (Auto) 0.0 L Baso % (Auto) 0.0 Neut # (Auto) 6400 Lymph # (Auto) 700 L [place] # (Auto) 100 Eos # (Auto) 0 Baso # (Auto) 0 Sodium 140 Potassium 4.1 Chloride 103 Carbon Dioxide 26 BUN 23 H Creatinine 1.09 Estimated GFR > 60 BUN/Creatinine Ratio 21.1 Glucose 149 H Calcium 9.0 PFSH Social History household members: spouse Tobacco & Substance Use Smoking Status: Never smoker alcohol intake: current Assessment & Plan Assessment & Plan narrative: Assessment: Supraglottic mass, hemoptysis, dysphagia, respiratory obstruction Plan: I discussed with the patient, his , and the hospitalist the likely epiglottic source of the mass, the laryngeal surface,that extends to the right aryepiglottic fold, cannot rule out right vocal cord partial immobility at most. The assumption is that this represents malignancy, most commonly squamous cell carcinoma but occasionally lymphoma or other. This undoubtedly represents the source of the hemoptysis/hematemesis, fortunately has not recurred. I highly recommend transfer to a tertiary care facility with a dedicated head neck oncologist for direct laryngoscopy with biopsy/debulking under general anesthesia possibly facilitated by laser treatment which is not available locally. The risk of acute airway compromise is lower at this point, he should not require tracheostomy now or prior to transfer if available. Based on the laryngoscopy, intubation should be possible posterior to the mass with a relatively normal larynx at the level of the cords. I recommend maintaining the patient NPO, maintain humidity, including with the CPAP. Time Spent With Patient Time with patient: less than 30 minutes Critical Care time: I spent a total of [] minutes of critical care time on this patient's care today; this time is exclusive of procedural time.
[2022-01-03 21:14] VITALS: BP 134/64; PULSE 76; RESP 17; TEMP 36.9; O2SAT 97
[2022-01-04] VITALS: BP 129/65; PULSE 77; RESP 16; TEMP 36.9; O2SAT 96
[2022-01-04] MEDS: AMPICILLIN/SULBACTAM 3 GM 3 GM in SODIUM CHLORIDE 0.9% 100 ML IV ×4 (00:40→17:31)
[2022-01-04] MEDS: ONDANSETRON 4 MG/2 ML INJ IV ×4 (00:41→17:33)
[2022-01-04] MEDS: DEXAMETHASONE 10 MG/ML VIAL 6 MG IV ×3 (03:23→18:43)
[2022-01-04 06:00] VITALS: BP 144/68; PULSE 63; RESP 16; TEMP 36.9; O2SAT 94
[2022-01-04 07:02] LABS: BUN Creatinine Ratio 27.1 (6-22); Blood Urea Nitrogen 29 mg/dL (9-20); Calcium 8.6 mg/dL (8.4-10.2); Carbon Dioxide 27 mmol/L (22-32); Chloride 103 mmol/L (98-107); Estimated Glomerular Filt Rate > 60 mL/min (>60); Glucose 139 mg/dL (80-110); HEMOLYSIS < 15 (0-50); Sodium 140 mmol/L (137-145)
[2022-01-04 07:14] LABS: Add Manual Diff / Slide Review NO; Basophils Absolute Auto 0 /uL (0-100); Basophils Percent Auto 0.1 % (0-2); Eosinophils Absolute Auto 0 /uL (0-450); Hematocrit 34.5 % (41-53); Hemoglobin 11.9 g/dL (13.5-17.5); Lymphocytes Absolute Auto 700 /uL (1100-4500); Lymphocytes Percent Auto 4.9 % (25-40); Mean Corpuscular HGB Conc 34.6 % (30-36); Mean Corpuscular Hemoglobin 30.8 PG (26-34); Mean Corpuscular Volume 88.8 fL (80-100); Monocytes Absolute Auto 400 /uL (0-900); Monocytes Percent Auto 2.7 % (3-14); Neutrophils Absolute Auto 13900 /uL (1500-7000); Neutrophils Percent Auto 92.3 % (50-75); Platelet Count 255 X10^3/uL (150-400); Red Blood Cell Count 3.88 X10^6/uL (4.5-5.9); Red Cell Distribution Width 13.9 % (11.6-14.8); White Blood Cell Count 15.1 X10^3/uL (4.5-11.0)
[2022-01-04] MEDS: SODIUM CHLORIDE 0.9% FLUSH 10 ML IV (08:31)
[2022-01-04 08:38] VITALS: BP 144/63
[2022-01-04] MEDS: allopurinoL 300 MG TABLET PO (08:38)
[2022-01-04] MEDS: LEVOTHYROXINE 100 MCG TABLET PO (08:38)
[2022-01-04] MEDS: LOSARTAN 50 MG TABLET PO (08:38)
[2022-01-04 09:36] VITALS: BP 144/63; PULSE 62; RESP 18; TEMP 36.8; O2SAT 97
--- NOTE | 2022-01-04 09:39 | P.DS_ITS ---
History of Present Illness History of Present Illness Date Patient Seen: 01/04/22 Time Patient Seen: 18:13 Chief complaint: Pharyngeal mass, hematemesis Narrative: Carrington García is a 71-year-old male past medical history of esophageal stricture s/p dilation in May 2021, GERD, COLT, hypothyroidism, hyperlipidemia and hypertension who presents with hemoptysis, throat swelling and hematemesis. Patient notes he first developed hemoptysis of bright red blood 2 days ago and has also had swelling of his tongue and throat for the past week. Yesterday he then had multiple episodes of maroon colored vomitus. Patient is not on anticoagulants. Denies any difficulty breathing. No history of stomach ulcers. Denies any abdominal pain or nausea. Is at the bedside who also states for the past several weeks he has had a ?rattling in his chest? with breathing. He denies difficulty swallowing but reports some speech difficulty and that his voice is muffled. Discharge Providers Provider Date of admission: 01/03/22 10:00 Discharge Date: 01/04/22 Primary care physician: Lottie Durant DO Consults: 01/02/22 08:16 Consult to General Surgery Routine Comment: Consulting Provider: Jose R Melissa Reason for consultation: UGIB Has provider been notified: Yes 01/02/22 14:14 Consult to Dietitian, Adult Routine Comment: Reason For Exam: recent weight loss 01/02/22 18:05 Consult to Physician Routine Comment: Consulting Provider: Isaias Zhang Reason for consultation: posterior tongue mass, spoke with Dr. Campbell Has provider been notified: Yes 01/03/22 10:50 Consult to Speech Therapy Evaluate & Treat Comment: Physician Instructions: Evaluate and treat Discharge provider: Nelson Curiel DO Summary Hospital Course Discharge Diagnosis: # acute hemoptysis and hematemesis secondary to epiglottal mass -CT soft tissue neck shows posterior tongue mass protruding into posterior pharyngeal space -Dr. Campbell, ENT called and recommended decadron load and unasyn -continue decadron 6 mg IV Q 8 hours amd Unasyn 3g q6h -NPO except ice chips/meds -Dr. 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 CT neck with contrast from 01/02 showed at least a 3 cm mass possibly originating from the base of tongue, no obvious lymphadenopathy.? ENT was consulted for further evaluation, possible biopsy if necessary.? On close questioning he originally underwent EGD 05/2021 with esophageal dilation but was complaining of some dysphagia at that point that has progressed ever since.? No significant pain, no significant airway obstruction, continues CPAP.? Voice has progressively become garbled, no bleeding up until the day prior to admission. Patient underwent bedside laryngoscopy which confirmed presence of epiglottal mass. The assumption is that this represents malignancy, most commonly squamous cell carcinoma but occasionally lymphoma or other.? This undoubtedly represents the source of the hemoptysis/hematemesis, fortunately has not recurred.? ENT highly recommended transfer to a tertiary care facility with a dedicated head neck oncologist for direct laryngoscopy with biopsy/debulking under general anesthesia possibly facilitated by laser treatment which is not available locally.? The risk of acute airway compromise is lower at this point, he should not require tracheostomy now or prior to transfer if available.? Based on the laryngoscopy, intubation should be possible posterior to the mass with a relatively normal larynx at the level of the cords.? Patient was kept NPO from 01/03 and accepted for transfer at . Time Spent with Patient Time spent: Greater than 30 minutes Exam Vital Signs (past 8 hours): - 01/04/22 06:00 01/04/22 08:38 01/04/22 09:36 Temperature 98.4 F 98.2 F Pulse Rate 63 62 Respiratory Rate 16 18 Blood Pressure 144/68 H 144/63 H 144/63 H Pulse Oximetry 94 97 Oxygen Flow Rate 0 0 Oxygen Delivery Method Room Air Oxygen Flow Rate 0 Narrative Exam Narrative: GEN: no acute distress, voice is muffled HEENT: moist mucous membranes, PERRL, no abnormality on visualization of posterior pharynx NECK: Bilateral fullness of the neck without pain to palpation CV: regular rate and rhythm, no murmurs PULM: clear bilaterally ABD: soft, nontender, nondistended, no organomegaly EXT: warm and well perfused with no edema NEURO: awake, alert, oriented, no focal deficits Objective Labs Result Diagrams: 01/04/22 06:19 01/04/22 06:19 Labs: Laboratory Results - last 24 hr 01/04/22 01/04/22 06:19 06:19 WBC 15.1 H D RBC 3.88 L Hgb 11.9 L Hct 34.5 L MCV 88.8 MCH 30.8 MCHC 34.6 RDW 13.9 Plt Count 255 Neut % (Auto) 92.3 H Lymph % (Auto) 4.9 L [place] % (Auto) 2.7 L Eos % (Auto) 0.0 L Baso % (Auto) 0.1 Neut # (Auto) 707[address] H Lymph # (Auto) 700 L [place] # (Auto) 400 Eos # (Auto) 0 Baso # (Auto) 0 Sodium 140 Potassium 4.0 Chloride 103 Carbon Dioxide 27 BUN 29 H Creatinine 1.07 Estimated GFR > 60 BUN/Creatinine Ratio 27.1 H Glucose 139 H Calcium 8.6 PFSH Social History household members: spouse Smoking Status: Never smoker alcohol intake: current Discharge Plan Discharge Plan Patient Disposition: [facility] Other facility: Discharge Data Primary Care Provider: Lottie Durant
--- NOTE | 2022-01-04 10:10 | ST.IPSCREEN ---
Results of the flexible laryngoscope indicate mass is possibly originating from base of tongue and impacts movement of epiglottis as well as right aryepiglottic fold. Due to impact on right aryepiglottic fold, partial immobility of right vocal fold cannot be ruled out. Given location of mass, pt's ability to protect his airway is significantly limited, placing him at high risk for aspiration. Recommend continued NPO diet with possible G-tube placement. Recommend consult with oncology regarding G-tube placement. Provided pt education regarding swallow structures and impairment given mass location. Pt expressed understanding.
--- NOTE | 2022-01-04 14:04 | P.PN_ITS ---
Subjective Subjective Date Patient Seen: 01/04/22 Time Patient Seen: 14:04 Interval history: Patient without additional bleeding. No airway compromise of difficulty breathing. Awaiting bed. Exam Vital Signs (past 8 hours): - 01/04/22 08:38 01/04/22 09:36 Temperature 98.2 F Pulse Rate 62 Respiratory Rate 18 Blood Pressure 144/63 H 144/63 H Pulse Oximetry 97 Oxygen Flow Rate 0 Oxygen Delivery Method Room Air Oxygen Flow Rate 0 Narrative Exam Narrative: GEN: no acute distress, voice is muffled HEENT: moist mucous membranes, PERRL, no abnormality on visualization of p osterior pharynx NECK: Bilateral fullness of the neck without pain to palpation CV: regular rate and rhythm, no murmurs PULM: clear bilaterally ABD: soft, nontender, nondistended, no organomegaly EXT: warm and well perfused with no edema NEURO: awake, alert, oriented, no focal deficits Objective Labs Result Diagrams: 01/04/22 06:19 01/04/22 06:19 Labs: Laboratory Results - last 24 hr 01/02/22 01/02/22 01/02/22 07:04 07:04 07:04 WBC 10.0 RBC 4.14 L Hgb 12.6 L Hct 37.5 L MCV 90.6 MCH 30.4 MCHC 33.6 RDW 13.3 Plt Count 246 Neut % (Auto) 76.5 H Lymph % (Auto) 15.7 L [place] % (Auto) 6.5 Eos % (Auto) 1.1 L Baso % (Auto) 0.2 Neut # (Auto) 7700 H Lymph # (Auto) 1600 [place] # (Auto) 600 Eos # (Auto) 100 Baso # (Auto) 0 PT 12.9 H INR 1.1 APTT 24 L Sodium 135 L Potassium 3.8 Chloride 102 Carbon Dioxide 24 BUN 32 H Creatinine 1.07 Estimated GFR > 60 BUN/Creatinine Ratio 29.9 H Glucose 165 H Lactate Calcium 8.0 L Total Bilirubin 0.7 AST 33 ALT 19 Alkaline Phosphatase 59 Total Creatine Kinase 95 CK-MB (CK-2) TNP CK-MB (CK-2) Rel Index TNP Troponin I < 0.012 Total Protein 6.7 Albumin 3.8 Globulin 2.9 Albumin/Globulin Ratio 1.3 01/02/22 01/04/22 01/04/22 07:04 06:19 06:19 WBC 15.1 H D RBC 3.88 L Hgb 11.9 L Hct 34.5 L MCV 88.8 MCH 30.8 MCHC 34.6 RDW 13.9 Plt Count 255 Neut % (Auto) 92.3 H Lymph % (Auto) 4.9 L [place] % (Auto) 2.7 L Eos % (Auto) 0.0 L Baso % (Auto) 0.1 Neut # (Auto) 73650 H Lymph # (Auto) 700 L [place] # (Auto) 400 Eos # (Auto) 0 Baso # (Auto) 0 PT INR APTT Sodium 140 Potassium 4.0 Chloride 103 Carbon Dioxide 27 BUN 29 H Creatinine 1.07 Estimated GFR > 60 BUN/Creatinine Ratio 27.1 H Glucose 139 H Lactate 2.8 H Calcium 8.6 Total Bilirubin AST ALT Alkaline Phosphatase Total Creatine Kinase CK-MB (CK-2) CK-MB (CK-2) Rel Index Troponin I Total Protein Albumin Globulin Albumin/Globulin Ratio PFS Social History household members: spouse Smoking Status: Never smoker alcohol intake: current Assessment & Plan Assessment & Plan narrative: # acute hemoptysis and hematemesis secondary to epiglottal mass -CT soft tissue neck shows posterior tongue mass protruding into posterior pharyngeal space -Dr. Campbell, ENT called and recommended -continue decadron 6 mg IV Q 8 hours amd Unasyn 3g q6h -NPO except ice chips/meds -Dr. 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 COVID negative. DVT prophylaxis with SCDs. Proxy is Pat. I have reviewed home meds and used all available resources to reconcile the home meds. Dispo: accepted but awaiting bed Time Spent With Patient Critical Care time: I spent a total of [] minutes of critical care time on this patient's care today; this time is exclusive of procedural time.
[2022-01-04 18:00] VITALS: BP 160/71; PULSE 75; RESP 17; TEMP 37.1; O2SAT 96
--- NOTE | 2022-01-04 19:20 | PC.NURSE ---
Addendum entered by Jennifer Doss R.N. 01/04/22 19:23: [facility] Original Note: Pt is saline locked, packed up and ready for transport to . Ambulance transfer arrived, report given to RN-Pt loaded onto gurney and Pt transported out via gurney/ambulance with all belongings. Attempted to call report to [facility] and awaiting to receive a call back
== END 2022-01-04 19:35 | disposition short-term general hospital (02) | DRG 147 ==
LOC: ED 08:13 → AC 08:16
PROVIDERS: Admitting Provider Student in an Organized Health Care Education/Training Program; Emergency Provider Emergency Medicine; PCP Student in an Organized Health Care Education/Training Program; Referring Provider Emergency Medicine; Visit Provider Student in an Organized Health Care Education/Training Program
DX: C32.1 Malignant neoplasm of supraglottis (principal); D62 Acute posthemorrhagic anemia; R04.2 Hemoptysis; J98.8 Other specified respiratory disorders; E03.9 Hypothyroidism, unspecified; I10 Essential (primary) hypertension; K21.9 Gastro-esophageal reflux disease without esophagitis; Z20.822 Contact with and (suspected) exposure to COVID-19
CPT/HCPCS: 36415; 70491; 71260; 80048; 80053; 82550; 83605; 84484; 85014; 85018; 85025; 85610; 85730; 86850; 86900; 86901; 87635; 92610; 96374; 96375; 99232; 99284; C9803; G0378; C9113; J0295; J0696; J1100; J2405

== ENCOUNTER 2022-01-28 17:16 | Emergency (ER) | payer MEDICARE, BC, OTHER, SELFPAY ==
[2022-01-02 12:24] VITALS: BMI 34.0
[2022-01-28] VITALS (11 sets, daily range): BP systolic 122–174; BP diastolic 65–78; PULSE 64–86; RESP 17–28; TEMP 36.3; O2SAT 95–98; BMI 31.4
--- NOTE | 2022-01-28 17:21 | ED.SYNCOPE ---
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. He presents today because he accidentally removed his trach and states that he had a brief syncopal episode soon after noting that he had accidentally taken it out. He quickly regained consciousness and his attempted to replace the trach, but noted it would not seat properly and about 1cm of the tube remained exposed. He has had prior syncopal episodes thought to be vagally mediated in the past and is at complete baseline here in the department. He is had a complicated history related to his trach placement. Initially he received a 6-0 cuffed Shiley, false passage of cuffed Shiley during feeding tube placement with difficult placement. Was subsequently changed to a 4-0 cuffless shiley. He went back to the OR on 01/19 and had a 6-0dXLT shiley to prevent false passage. He denies any fever chills nor trouble breathing. He has no nausea, vomiting or diarrhea. He was most recently seen and evaluated on for evaluation of his tracheostomy Related Data Home Medications Medication Instructions Recorded Confirmed allopurinol 300 mg tablet 300 mg PO DAILY 01/03/22 01/03/22 chlorthalidone 15 mg tablet 15 mg PO DAILY 01/03/22 01/03/22 (Thalitone) levothyroxine 100 mcg tablet 100 mcg PO DAILY 01/03/22 01/03/22 losartan 50 mg tablet 50 mg PO DAILY 01/03/22 01/03/22 simvastatin 20 mg tablet 20 mg PO DAILY 01/03/22 01/03/22 Allergies Allergy/AdvReac Type Severity Reaction Status Date / Time codeine Allergy Intermediate Vomiting Verified 01/02/22 09:54 Review of Systems Review of Systems Narrative: GENERAL: Denies chills, fatigue, malaise, fever, sweats. HEENT: See HPI RESPIRATORY: Denies dyspnea, cough, wheezing, hemoptysis, sputum. CARDIOVASCULAR: Denies chest pain, palpitations, orthopnea, edema, GASTROINTESTINAL: Denies nausea, vomiting, abdominal pain, diarrhea, constipation, melena. : Denies dysuria, frequency, incontinence, hematuria, urinary retention. MUSCULOSKELETAL: denies weakness, joint pain, or bony pain SKIN: Denies rash, skin lesions, or other NEUROLOGIC: Denies weakness, headache, numbness, change in speech, confusion, seizures, incoordination. PSYCHIATRIC: No concerning psychosocial issues. 12 point review of systems is negative except for those stated above Patient History Social History household members: spouse Smoking Status: Never smoker alcohol intake: current Smoking Status: Never smoker alcohol intake frequency: holidays/special occasions only Alcohol type: beer Substance Use Type: does not use Exam Narrative Exam Narrative: GENERAL: [71] year old patient appears stated age. Well-developed patient, in mild distress. HEAD: Atraumatic. Normocephalic. EYES: Pupils equal round and reactive. Extraocular motions intact. No scleral icterus. No injection or drainage. ENT: Nose without bleeding, purulent drainage. Throat without erythema, tonsillar hypertrophy or exudate. Airway patent. NECK: Trachea midline. Non tender CARDIOVASCULAR: Regular rate and rhythm without murmurs, gallops, or rubs. RESPIRATORY: Clear to auscultation. Breath sounds equal bilaterally. No wheezes, rales, or rhonchi. GASTROINTESTINAL: Abdomen soft, non-tender, nondistended. EXTREMITIES: No edema or joint tenderness. BACK: Nontender without deformity or crepitance. No flank tenderness. NEURO: AOx3. SKIN: No rash or erythema of visible areas Initial Vital Signs Initial Vital Signs: Vital Signs Temperature 97.3 F L 01/28/22 17:16 Pulse Rate 64 01/28/22 17:16 Respiratory Rate 18 01/28/22 17:16 Blood Pressure 131/74 01/28/22 17:16 Pulse Oximetry 98 01/28/22 17:16 Oxygen Delivery Method 01/28/22 17:16 Course Course Course Narrative: There is difficulty replacing the trach, care taken to reposition patient, using a towel roll under his neck, lying flat, sitting him upright, attempts at rotating the trach at 90? from either side before advancing, obturator was in place and these attempts were unsuccessful. Nurse sales representative supervisor was contacted and she was able to find a 4 0 cuffed trach which also did not advance. There were gentle attempts at use of a Asherman's stylette and attempted Seldinger technique to slide trach over which patient did not tolerate and there was an apparent mechanical obstruction to this process. Myself, another emergency department physician as well as on-call surgeon who all made attempts and are thus far unsuccessful. I have been in contact with on-call ENT at the [facility] multiple times and we sure the opinion that given patient is able to breathe without any difficulty in the absence of tracheostomy that the most appropriate approach at this point time is to discharge patient home with extensive and detailed return precautions and follow-up at the ENT clinic at [facility] tomorrow. Currently the on-call ENT is discussing with patient's own ENT the details of this appointment. Orders Ordered: Discontinued Medications Gabapentin (Gabapentin 100 Mg Capsule) 100 mg PO NOW ONE Stop: 01/28/22 20:48 Last Admin: 01/28/22 21:03 Dose: 100 mg Documented By: RB Hydroxyzine Pamoate (Hydroxyzine Pamoate 25 Mg Capsule) 25 mg PO NOW ONE Stop: 01/28/22 18:39 Last Admin: 01/28/22 18:51 Dose: 25 mg Documented By: ANTHONY Sodium Chloride (Normal Saline 0.9%) 500 mls @ 1,000 mls/hr IV BOLUS ONE Stop: 01/28/22 18:07 Last Infusion: 01/28/22 19:30 Dose: 0 mls/hr Documented By: Admin: 01/28/22 17:53 Dose: 1,000 mls/hr Documented By: RB Losartan Potassium (Losartan 50 Mg Tablet) 50 mg PO NOW ONE Stop: 01/28/22 20:48 Last Admin: 01/28/22 21:03 Dose: 50 mg Documented By: RB Vital Signs Vital signs: Vital Signs - 8 hr 01/28/22 17:16 01/28/22 17:49 01/28/22 18:00 Temperature 97.3 F L Pulse Rate 64 64 Respiratory Rate 18 17 Blood Pressure 131/74 144/70 H Pulse Oximetry 98 98 Oxygen Delivery Method Room Air 01/28/22 18:00 01/28/22 18:30 01/28/22 18:31 Temperature Pulse Rate 66 72 Respiratory Rate 21 19 Blood Pressure 174/77 H Pulse Oximetry 98 98 Oxygen Delivery Method 10/30/22 18:31 Temperature Pulse Rate 71 Respiratory Rate 19 Blood Pressure Pulse Oximetry 98 Oxygen Delivery Method MDM - Syncope Lab Data Result diagrams: 01/28/22 17:13 01/28/22 17:13 Labs: Lab Results 01/28/22 01/28/22 Range/Units 17:13 17:13 WBC 6.9 (4.5-11.0) X10^3/uL RBC 3.93 L (4.5-5.9) X10^6/uL Hgb 12.2 L (13.5-17.5) g/dL Hct 35.1 L (41-53) % MCV 89.3 (80-100) fL MCH 31.0 (26-34) PG MCHC 34.8 (30-36) % RDW 14.0 (11.6-14.8) % Plt Count 499 H (150-400) X10^3/uL Neut % (Auto) 63.3 (50-75) % Lymph % (Auto) 23.3 L (25-40) % [place] % (Auto) 10.8 (3-14) % Eos % (Auto) 2.3 (2-4) % Baso % (Auto) 0.3 (0-2) % Neut # (Auto) 4300 (0453-5361) /uL Lymph # (Auto) 1600 (1953-1916) /uL [place] # (Auto) 700 (0-900) /uL Eos # (Auto) 200 (0-450) /uL Baso # (Auto) 0 (0-100) /uL Sodium 137 (137-145) mmol/L Potassium 3.9 (3.4-5.1) mmol/L Chloride 98 (98-107) mmol/L Carbon Dioxide 26 (22-32) mmol/L BUN 34 H (9-20) mg/dL Creatinine 1.23 (0.66-1.25) mg/dL Estimated GFR > 60 (>60) mL/min BUN/Creatinine Ratio 27.6 H (6-22) Glucose 143 H (80-110) mg/dL Calcium 9.2 (8.4-10.2) mg/dL Magnesium 2.2 (1.6-2.3) mg/dL Total Bilirubin 0.6 (0.2-1.3) mg/dL AST 37 (17-59) IU/L ALT 31 (<50) IU/L Alkaline Phosphatase 89 (38-126) U/L Total Protein 7.9 (6.3-8.2) g/dL Albumin 4.4 (3.5-5.0) g/dL Globulin 3.5 (1.7-4.1) g/dL Albumin/Globulin Ratio 1.3 (1.0-2.8) MDM Narrative Medical decision making narrative: Patient evaluated not only for dislodgement of tracheostomy but also the brief syncopal episode associated with its removal. Patient is extremely stable, had only brief episode, normal EKG and labs as well as vital signs. Multiple diagnoses considered but this seems clearly to be a vagal response. Discharge Plan Departure Patient Disposition: Home Clinical Impression: Tracheostomy complication, Tongue mass Instructions: How to Take Care of a Tracheostomy Activity Restrictions/Additional Instructions: *You have been diagnosed with [tracheostomy dislodged, and unfortunately we were unable to replace it tonight. ] *What to do: *Please continue to take your regular medications as directed. *Please follow up with ENT at Clinic 2pm at the Otolaryngology/ENT clinic at [facility] on the 3rd floor. [facility], [address] [facility] 3rd floor, [place] [address] *Return to Emergency Department if you should have any new, worsening or concerning symptoms, such as [trouble breathing, fever greater than 101 F, shaking chills, worsening pain, persistent vomiting or other bothersome symptoms] Prescriptions: No Action allopurinol 300 mg tablet 300 mg PO DAILY levothyroxine 100 mcg tablet 100 mcg PO DAILY losartan 50 mg tablet 50 mg PO DAILY simvastatin 20 mg tablet 20 mg PO DAILY Thalitone 15 mg tablet 15 mg PO DAILY Referrals: Lottie Durant DO [Primary Care Provider] - Visit Report Forms: Patient Portal/API
[2022-01-28] MEDS: SODIUM CHLORIDE 0.9% 500 ML 1000 ML IV (17:53)
[2022-01-28 17:59] LABS: Add Manual Diff / Slide Review NO; Basophils Absolute Auto 0 /uL (0-100); Basophils Percent Auto 0.3 % (0-2); Eosinophils Absolute Auto 200 /uL (0-450); Eosinophils Percent Auto 2.3 % (2-4); Hematocrit 35.1 % (41-53); Hemoglobin 12.2 g/dL (13.5-17.5); Lymphocytes Absolute Auto 1600 /uL (1100-4500); Lymphocytes Percent Auto 23.3 % (25-40); Mean Corpuscular HGB Conc 34.8 % (30-36); Mean Corpuscular Volume 89.3 fL (80-100); Monocytes Absolute Auto 700 /uL (0-900); Monocytes Percent Auto 10.8 % (3-14); Neutrophils Absolute Auto 4300 /uL (1500-7000); Neutrophils Percent Auto 63.3 % (50-75); Platelet Count 499 X10^3/uL (150-400); Red Blood Cell Count 3.93 X10^6/uL (4.5-5.9); White Blood Cell Count 6.9 X10^3/uL (4.5-11.0)
[2022-01-28 18:19] LABS: Alanine Aminotransferase 31 IU/L (<50); Albumin 4.4 g/dL (3.5-5.0); Albumin Globulin Ratio 1.3 (1.0-2.8); Alkaline Phosphatase 89 U/L (38-126); Aspartate Aminotransferase 37 IU/L (17-59); BUN Creatinine Ratio 27.6 (6-22); Bilirubin Total 0.6 mg/dL (0.2-1.3); Blood Urea Nitrogen 34 mg/dL (9-20); Calcium 9.2 mg/dL (8.4-10.2); Carbon Dioxide 26 mmol/L (22-32); Chloride 98 mmol/L (98-107); Estimated Glomerular Filt Rate > 60 mL/min (>60); Globulin 3.5 g/dL (1.7-4.1); Glucose 143 mg/dL (80-110); HEMOLYSIS < 15 (0-50); Magnesium 2.2 mg/dL (1.6-2.3); Potassium 3.9 mmol/L (3.4-5.1); Sodium 137 mmol/L (137-145); Total Protein 7.9 g/dL (6.3-8.2)
[2022-01-28] MEDS: hydrOXYzine pamoate 25 MG CAPSULE PO (18:51)
[2022-01-28] MEDS: GABAPENTIN 100 MG CAPSULE PO (21:03)
[2022-01-28] MEDS: LOSARTAN 50 MG TABLET PO (21:03)
== END 2022-01-28 21:33 | disposition home or self-care (01) ==
PROVIDERS: Emergency Provider Emergency Medicine; PCP Student in an Organized Health Care Education/Training Program
DX: Z98.890 Other specified postprocedural states (principal); J95.00 Unspecified tracheostomy complication; K14.8 Other diseases of tongue; R55 Syncope and collapse; R07.9 Chest pain, unspecified
CPT/HCPCS: 36415; 80053; 83735; 85025; 93005; 96360; 96361; 99284

== ENCOUNTER → 2022-04-16 13:34 | Outpatient (CLI) | payer MEDICARE, BC, OTHER, SELFPAY ==
[2022-01-02 12:24] VITALS: BMI 34.0
[2022-04-16 15:04] LABS: Add Manual Diff / Slide Review NO; Basophils Absolute Auto 0 /uL (0-100); Basophils Percent Auto 0.3 % (0-2); Eosinophils Absolute Auto 0 /uL (0-450); Eosinophils Percent Auto 0.4 % (2-4); Hematocrit 26.4 % (41-53); Lymphocytes Absolute Auto 300 /uL (1100-4500); Lymphocytes Percent Auto 15.6 % (25-40); Mean Corpuscular HGB Conc 34.1 % (30-36); Mean Corpuscular Hemoglobin 31.5 PG (26-34); Mean Corpuscular Volume 92.7 fL (80-100); Monocytes Absolute Auto 300 /uL (0-900); Monocytes Percent Auto 13.7 % (3-14); Neutrophils Absolute Auto 1500 /uL (1500-7000); Platelet Count 148 X10^3/uL (150-400); Red Blood Cell Count 2.85 X10^6/uL (4.5-5.9); Red Cell Distribution Width 16.1 % (11.6-14.8); White Blood Cell Count 2.1 X10^3/uL (4.5-11.0)
[2022-04-16 15:15] LABS: BUN Creatinine Ratio 38.6 (6-22); Blood Urea Nitrogen 32 mg/dL (9-20); Calcium 8.1 mg/dL (8.4-10.2); Carbon Dioxide 28 mmol/L (22-32); Chloride 100 mmol/L (98-107); Estimated Glomerular Filt Rate > 60 mL/min (>60); Glucose 105 mg/dL (80-110); HEMOLYSIS < 15 (0-50); Potassium 4.7 mmol/L (3.4-5.1); Sodium 136 mmol/L (137-145)
== END ==
PROVIDERS: PCP Student in an Organized Health Care Education/Training Program; Referring Provider Physician Assistant; Visit Provider Physician Assistant
DX: C10.9 Malignant neoplasm of oropharynx, unspecified (principal)
CPT/HCPCS: 36415; 80048; 85025

== ENCOUNTER → 2022-04-27 11:20 | Outpatient (CLI) | payer MEDICARE, BC, OTHER, SELFPAY ==
[2022-01-02 12:24] VITALS: BMI 34.0
[2022-04-27 12:29] LABS: Cholesterol 200 mg/dL (140-199); HDL Cholesterol 39 mg/dL (40-60); LDL Cholesterol Calculated 130 mg/dL (<100); Triglycerides 156 mg/dL (35-150); Uric Acid 8.2 mg/dL (3.5-8.5)
[2022-04-27 12:59] LABS: TSH w/ Reflex to FT4 0.62 uIU/mL (0.47-4.68)
== END ==
PROVIDERS: PCP Student in an Organized Health Care Education/Training Program; Referring Provider Student in an Organized Health Care Education/Training Program; Visit Provider Student in an Organized Health Care Education/Training Program
DX: E03.9 Hypothyroidism, unspecified (principal); E78.49 Other hyperlipidemia
CPT/HCPCS: 36415; 80061; 84443; 84550

== ENCOUNTER 2022-07-01 14:26 | Emergency (ER) | payer MEDICARE, BC, OTHER, SELFPAY ==
[2022-01-02 12:24] VITALS: BMI 34.0
[2022-07-01] VITALS (15 sets, daily range): BP systolic 141–192; BP diastolic 67–83; PULSE 57–67; RESP 12–21; TEMP 36.3–36.5; O2SAT 100; BMI 29.0
--- NOTE | 2022-07-01 16:44 | DI.RAD.S_ITS ---
PROCEDURE: XR CHEST 1V INDICATIONS: chest pain TECHNIQUE: One view of the chest was acquired. COMPARISON: [facility], CR, XR CHEST 2 VIEWS, 12/12/2021, 12:27. FINDINGS: Surgical changes and devices: None. Lungs and pleura: On this semiupright portable chest examination, no large pneumothorax or large pleural effusions are seen. No focal infiltrates are seen. Mediastinum: The cardiac contours are within normal limits. The aorta demonstrates calcification and tortuosity. Bones and chest wall: No suspicious bony lesions. Age-appropriate bony degenerative changes are seen. Overlying soft tissues appear unremarkable. IMPRESSION: No acute cardiopulmonary process is seen. Dictated by: Channing Emanuel M.D. on 07/01/2022 at 16:14 Approved by: Channing Emanuel M.D. on 07/01/2022 at 16:15
[2022-07-01 17:20] LABS: Add Manual Diff / Slide Review NO; Basophils Absolute Auto 0 /uL (0-100); Basophils Percent Auto 0.2 % (0-2); Eosinophils Absolute Auto 100 /uL (0-450); Hematocrit 35.6 % (41-53); Hemoglobin 12.1 g/dL (13.5-17.5); Lymphocytes Absolute Auto 600 /uL (1100-4500); Lymphocytes Percent Auto 6.7 % (25-40); Mean Corpuscular HGB Conc 34.1 % (30-36); Mean Corpuscular Hemoglobin 31.6 PG (26-34); Mean Corpuscular Volume 92.9 fL (80-100); Monocytes Absolute Auto 500 /uL (0-900); Monocytes Percent Auto 5.2 % (3-14); Neutrophils Absolute Auto 7600 /uL (1500-7000); Neutrophils Percent Auto 86.9 % (50-75); Platelet Count 238 X10^3/uL (150-400); Red Blood Cell Count 3.83 X10^6/uL (4.5-5.9); Red Cell Distribution Width 13.8 % (11.6-14.8); White Blood Cell Count 8.7 X10^3/uL (4.5-11.0)
[2022-07-01 17:29] LABS: PTT Partial Thromboplastin Tim 28 SECONDS (26-36)
[2022-07-01 17:30] LABS: Alanine Aminotransferase 15 IU/L (<50); Albumin 4.3 g/dL (3.5-5.0); Albumin Globulin Ratio 1.3 (1.0-2.8); Alkaline Phosphatase 57 U/L (38-126); Aspartate Aminotransferase 22 IU/L (17-59); BUN Creatinine Ratio 20.6 (6-22); Bilirubin Total 0.4 mg/dL (0.2-1.3); Blood Urea Nitrogen 26 mg/dL (9-20); Calcium 8.8 mg/dL (8.4-10.2); Carbon Dioxide 26 mmol/L (22-32); Chloride 104 mmol/L (98-107); Creatine Kinase 48 U/L (55-170); Estimated Glomerular Filt Rate > 60 mL/min (>60); Globulin 3.2 g/dL (1.7-4.1); Glucose 91 mg/dL (80-110); HEMOLYSIS < 15 (0-50); Lipase 38 U/L (23-300); Magnesium 1.8 mg/dL (1.6-2.3); Potassium 3.6 mmol/L (3.4-5.1); Sodium 139 mmol/L (137-145); Total Protein 7.5 g/dL (6.3-8.2)
[2022-07-01 17:35] LABS: Prothrombin Time 11.7 SECONDS (10.1-12.7)
[2022-07-01 17:41] LABS: Troponin I < 0.012 ng/mL (0.01-0.034)
--- NOTE | 2022-07-01 18:12 | ED_ITS ---
HPI - Recheck/Abnormal Lab/Rx General Chief Complaint: Recheck/Abnormal Lab/Rx Stated Complaint: bleeding from site where feed tube rem, fainted Time Seen by Provider: 07/01/22 18:12 Source: patient Mode of arrival: Ambulatory History of Present Illness HPI narrative: 71-year-old male nonsmoker with history of tongue mass, tracheostomy, feeding tubes, hypertension, hypothyroid, hyperlipidemia and prior episodes of vasovagal near-syncope presents with a chief complaint of a syncopal or near syncopal episode happened just prior to arrival at the site of his own blood. He admittedly has a very difficult time when he sees blood in his had prior syncopal episodes under similar circumstances. He had a G-tube placed many months ago and had it removed a few weeks ago. He just took the dressing off for the 1st time today and saw a little bit of bleeding. He denies any fever or chills. He has no pain. He is no longer dizzy, weak or lightheaded. Related Data Home Medications Medication Instructions Recorded Confirmed allopurinol 300 mg tablet 300 mg PO DAILY 01/03/22 01/03/22 chlorthalidone 15 mg tablet 15 mg PO DAILY 01/03/22 01/03/22 (Thalitone) levothyroxine 100 mcg tablet 100 mcg PO DAILY 01/03/22 01/03/22 losartan 50 mg tablet 50 mg PO DAILY 01/03/22 01/03/22 simvastatin 20 mg tablet 20 mg PO DAILY 01/03/22 01/03/22 Allergies Allergy/AdvReac Type Severity Reaction Status Date / Time codeine Allergy Intermediate Vomiting Verified 07/01/22 14:36 Review of Systems Review of Systems Narrative: GENERAL: See HPI HEENT: Denies sinus pain, ear pain, sore throat, difficulty swallowing, dizziness. RESPIRATORY: Denies dyspnea, cough, wheezing, hemoptysis, sputum. CARDIOVASCULAR: See HPI GASTROINTESTINAL: See HPI : Denies dysuria, frequency, incontinence, hematuria, urinary retention. MUSCULOSKELETAL: denies weakness, joint pain, or bony pain SKIN: See HPI NEUROLOGIC: Denies weakness, headache, numbness, change in speech, confusion, seizures, incoordination. PSYCHIATRIC: No concerning psychosocial issues. 12 point review of systems is negative except for those stated above Patient History Social History household members: spouse Smoking Status: Never smoker alcohol intake: current Smoking Status: Never smoker alcohol intake frequency: holidays/special occasions only Alcohol type: beer Substance Use Type: does not use Exam Narrative Exam Narrative: GENERAL: [71] year old patient appears stated age. Well-developed patient, in mild distress. HEAD: Atraumatic. Normocephalic. EYES: Pupils equal round and reactive. Extraocular motions intact. No scleral icterus. No injection or drainage. ENT: Nose without bleeding, purulent drainage. Throat without erythema, tonsillar hypertrophy or exudate. Airway patent. NECK: Trachea midline. Non tender CARDIOVASCULAR: Regular rate and rhythm without murmurs, gallops, or rubs. RESPIRATORY: Clear to auscultation. Breath sounds equal bilaterally. No wheezes, rales, or rhonchi. GASTROINTESTINAL: Abdomen soft, non-tender, nondistended. Appropriately healing G-tube site with granulation tissue, no surrounding erythema or drainage EXTREMITIES: No edema or joint tenderness. BACK: Nontender without deformity or crepitance. No flank tenderness. NEURO: AOx3. SKIN: No rash or erythema of visible areas Initial Vital Signs Initial Vital Signs: Vital Signs Temperature 97.4 F L 07/01/22 14:30 Pulse Rate 63 07/01/22 14:30 Respiratory Rate 16 07/01/22 14:30 Blood Pressure 167/72 H 07/01/22 14:30 Pulse Oximetry 100 07/01/22 14:30 Oxygen Delivery Method Room Air 07/01/22 14:30 Course Orders Ordered: ED Orders 07/01/22 16:44 XR chest 1V Stat 07/01/22 16:58 EKG-12 Lead Stat 07/01/22 17:06 Complete Blood Count AUTO DIFF Stat Comprehensive Metabolic Panel Stat Lipase Stat Magnesium Stat PTT Partial Thromboplastin Rudy Stat Prothrombin Time INR Stat Troponin & CK Cardiac Panel Stat Vital Signs Vital signs: Vital Signs - 8 hr 07/01/22 18:52 07/01/22 18:00 07/01/22 18:00 Pulse Rate 65 Pulse Rate [Orthostatic Lying] 64 Pulse Rate [Orthostatic Sitting] 63 Pulse Rate [Orthostatic Standing] 67 Respiratory Rate Blood Pressure 144/75 H Blood Pressure [Orthostatic Lying] 160/83 H Blood Pressure [Orthostatic Sitting] 169/77 H Blood Pressure [Orthostatic Standing] 167/72 H Pulse Oximetry 100 Oxygen Delivery Method 07/01/22 18:30 07/01/22 18:30 07/01/22 18:40 Pulse Rate 63 Pulse Rate [Orthostatic Lying] Pulse Rate [Orthostatic Sitting] Pulse Rate [Orthostatic Standing] Respiratory Rate 14 Blood Pressure 150/72 H 160/83 H Blood Pressure [Orthostatic Lying] Blood Pressure [Orthostatic Sitting] Blood Pressure [Orthostatic Standing] Pulse Oximetry 100 Oxygen Delivery Method 07/01/22 18:40 07/01/22 18:42 07/01/22 18:42 Pulse Rate 65 65 Pulse Rate [Orthostatic Lying] Pulse Rate [Orthostatic Sitting] Pulse Rate [Orthostatic Standing] Respiratory Rate 14 16 Blood Pressure 169/77 H Blood Pressure [Orthostatic Lying] Blood Pressure [Orthostatic Sitting] Blood Pressure [Orthostatic Standing] Pulse Oximetry 100 100 Oxygen Delivery Method Room Air 07/01/22 18:43 07/01/22 18:43 07/01/22 18:49 Pulse Rate 66 Pulse Rate [Orthostatic Lying] Pulse Rate [Orthostatic Sitting] Pulse Rate [Orthostatic Standing] Respiratory Rate 21 Blood Pressure 167/72 H 192/77 H Blood Pressure [Orthostatic Lying] Blood Pressure [Orthostatic Sitting] Blood Pressure [Orthostatic Standing] Pulse Oximetry Oxygen Delivery Method 07/01/22 18:49 07/01/22 18:50 07/01/22 18:50 Pulse Rate 67 64 Pulse Rate [Orthostatic Lying] Pulse Rate [Orthostatic Sitting] Pulse Rate [Orthostatic Standing] Respiratory Rate 15 13 Blood Pressure 171/76 H Blood Pressure [Orthostatic Lying] Blood Pressure [Orthostatic Sitting] Blood Pressure [Orthostatic Standing] Pulse Oximetry 100 100 Oxygen Delivery Method 07/01/22 19:00 07/01/22 19:00 Pulse Rate 67 Pulse Rate [Orthostatic Lying] Pulse Rate [Orthostatic Sitting] Pulse Rate [Orthostatic Standing] Respiratory Rate 16 Blood Pressure 164/71 H Blood Pressure [Orthostatic Lying] Blood Pressure [Orthostatic Sitting] Blood Pressure [Orthostatic Standing] Pulse Oximetry 100 Oxygen Delivery Method MDM - Recheck/Abnormal Lab/Rx Lab Data 07/01/22 17:06 07/01/22 17:06 Labs: Lab Results 07/01/22 07/01/22 07/01/22 Range/Units 17:06 17:06 17:06 WBC 8.7 (4.5-11.0) X10^3/uL RBC 3.83 L (4.5-5.9) X10^6/uL Hgb 12.1 L (13.5-17.5) g/dL Hct 35.6 L (41-53) % MCV 92.9 (80-100) fL MCH 31.6 (26-34) PG MCHC 34.1 (30-36) % RDW 13.8 (11.6-14.8) % Plt Count 238 (150-400) X10^3/uL Neut % (Auto) 86.9 H (50-75) % Lymph % (Auto) 6.7 L (25-40) % Charlotte % (Auto) 5.2 (3-14) % Eos % (Auto) 1.0 L (2-4) % Baso % (Auto) 0.2 (0-2) % Neut # (Auto) 7600 H (9290-0786) /uL Lymph # (Auto) 600 L (6458-4560) /uL Charlotte # (Auto) 500 (0-900) /uL Eos # (Auto) 100 (0-450) /uL Baso # (Auto) 0 (0-100) /uL PT 11.7 (10.1-12.7) SECONDS INR 1.0 (0.9-1.3) APTT 28 (26-36) SECONDS Sodium 139 (137-145) mmol/L Potassium 3.6 (3.4-5.1) mmol/L Chloride 104 (98-107) mmol/L Carbon Dioxide 26 (22-32) mmol/L BUN 26 H (9-20) mg/dL Creatinine 1.26 H (0.66-1.25) mg/dL Estimated GFR > 60 (>60) mL/min BUN/Creatinine Ratio 20.6 (6-22) Glucose 91 (80-110) mg/dL Calcium 8.8 (8.4-10.2) mg/dL Magnesium 1.8 (1.6-2.3) mg/dL Total Bilirubin 0.4 (0.2-1.3) mg/dL AST 22 (17-59) IU/L ALT 15 (<50) IU/L Alkaline Phosphatase 57 (38-126) U/L Total Creatine Kinase 48 L (55-170) U/L CK-MB (CK-2) TNP CK-MB (CK-2) Rel Index TNP Troponin I < 0.012 (0.01-0.034) ng/mL Total Protein 7.5 (6.3-8.2) g/dL Albumin 4.3 (3.5-5.0) g/dL Globulin 3.2 (1.7-4.1) g/dL Albumin/Globulin Ratio 1.3 (1.0-2.8) Lipase 38 (23-300) U/L MDM Narrative Medical decision making narrative: CC: 71-year-old male with near syncopal or syncopal episode after looking at a wound on his abdomen Complicating co-morbidities: Age, hyperlipidemia, hypertension, hypothyroid versus other Data collected from: Patient Medical records reviewed: Prior notes reviewed in our EMR Differential considered, but not limited to: Cardiogenic syncope, vasovagal, electrolyte abnormality, arrhythmia, bleeding complication versus other Exam documented above, pertinent findings include: Patient alert and oriented x3, GCS 15, no injuries apparent as a consequence of the event, heart rate regular, lungs clear no evidence of labored breathing, abdomen soft and nontender, no active bleeding from gastric tube site. Lab Test results independently reviewed as above. Pertinent findings: No leukocytosis or anemia, electrolytes within normal, slight increase in creatinine Independently reviewed EKG as above Imaging studies independently reviewed: Chest x-ray without evidence of acute process Re-evaluations: Patient asymptomatic for duration of visit Discussion: Patient had a near syncopal or syncopal event prior to arrival and was asymptomatic nearly immediately after and for the duration of his visit. He is had multiple prior episodes of vagal response to viewing his own blood and today he took off the dressing for the 1st time after having his gastric tube removed. Upon doing so he saw small amount of blood which made him feel dizzy, weak and lightheaded and led to his near syncopal event. There has been no ongoing bleeding, he suffered no injury as a consequence of this. Other diagnoses considered as mentioned above but thought unlikely given his history, physical, labs, EKG among others. Disposition: see below, along with detailed discharge instructions that have been reviewed with patient as well as indications for ED re-evaluation and additional outpatient follow up Discharge Plan Departure Patient Disposition: Home Clinical Impression: Syncope, Visit for wound check Instructions: TRAV for Syncope in Adults (Fainting) Activity Restrictions/Additional Instructions: *You have been diagnosed with [vasovagal syncope, wound check. As we discussed your history and physical exam as well as labs are very reassuring.] *What to do: *Please continue to take your regular medications as directed. [ ] New medication prescriptions sent to your pharmacy: [ ] [ ] New medication written as a paper prescription [ ] No new medications given *Please follow up with your primary care provider in 2-3 days, call for an appointment. Let them know you were seen in the Emergency Department and that we ask that you be seen in follow up. We will electronically transmit a record of today's note if your PCP is in our system *If you do not have a primary care provider please contact the [facility] Resource line at [phone]. They will ask some questions about your medical history and help get you set up with a doctor in the community. *Return to Emergency Department if you should have any new, worsening or concerning symptoms, such as [fever greater than 101 F, shaking chills, worsening pain, persistent vomiting or other bothersome symptoms] Prescriptions: No Action allopurinol 300 mg tablet 300 mg PO DAILY levothyroxine 100 mcg tablet 100 mcg PO DAILY losartan 50 mg tablet 50 mg PO DAILY simvastatin 20 mg tablet 20 mg PO DAILY Thalitone 15 mg tablet 15 mg PO DAILY Referrals: Lottie Durant DO [Primary Care Provider] - Stand Alone Forms: Patient Portal/API
--- NOTE | 2022-07-01 19:15 | PC.NURSE ---
Per provider, applied pink foam Bland 4x4 bandage. Patient aware to change as necessary.
== END 2022-07-01 19:15 | disposition home or self-care (01) ==
PROVIDERS: Emergency Medicine; Emergency Provider Emergency Medicine; PCP Student in an Organized Health Care Education/Training Program
DX: R55 Syncope and collapse (principal); Z48.01 Encounter for change or removal of surgical wound dressing; R07.9 Chest pain, unspecified; R79.89 Other specified abnormal findings of blood chemistry
CPT/HCPCS: 36415; 71045; 80053; 82550; 83690; 83735; 84484; 85025; 85610; 85730; 93005; 99284

== ENCOUNTER 2022-12-03 11:49 | Emergency (ER) | payer MEDICARE, BC, OTHER, SELFPAY ==
[2022-01-02 12:24] VITALS: BMI 34.0
[2022-12-03 12:18] VITALS: BP 161/78; PULSE 70; RESP 17; TEMP 37.5; O2SAT 99; BMI 29.4
[2022-12-03 12:55] LABS: COVID19 -Nasal RAPID POSITIVE (Negative)
--- NOTE | 2022-12-03 12:57 | ED.URI ---
HPI - URI/Sore Throat <Terra William PA-C - Last Filed: 12/03/22 13:28> General Chief Complaint: Upper Respiratory Symptoms Stated Complaint: feels sick/poss covid and rsv Time Seen by Provider: 12/03/22 12:20 Source: patient Mode of arrival: Ambulatory History of Present Illness HPI Narrative: 72-year-old male presents to ED with URI symptoms. Denies fever. Reports sore throat, mild cough especially at night, and chills. Also reports fatigue and achiness. He was just at a conference with hundreds of people but was not specifically exposed to COVID that he is aware of. Him and his are very nervous about COVID and other respiratory infections. Patient has history hypertension. 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 He was told he is cured and there is no ongoing concerns with that condition at this time. He has never had COVID before. He is up-to-date on vaccinations. He denies shortness of breath, chest pain. Related Data Home Medications Medication Instructions Recorded Confirmed allopurinol 300 mg tablet 300 mg PO DAILY 01/03/22 01/03/22 chlorthalidone 15 mg tablet 15 mg PO DAILY 01/03/22 01/03/22 (Thalitone) levothyroxine 100 mcg tablet 100 mcg PO DAILY 01/03/22 01/03/22 losartan 50 mg tablet 50 mg PO DAILY 01/03/22 01/03/22 simvastatin 20 mg tablet 20 mg PO DAILY 01/03/22 01/03/22 Previous Rx's Medication Instructions Recorded ibuprofen 600 mg tablet 600 mg PO Q8H PRN pain or sore 12/03/22 throat #20 tabs Allergies Allergy/AdvReac Type Severity Reaction Status Date / Time codeine Allergy Intermediate Vomiting Verified 07/01/22 14:36 Review of Systems <Terra William PA-C - Last Filed: 12/03/22 13:28> Review of Systems ROS Unobtainable: All systems reviewed & are unremarkable except as noted in HPI and below Patient History <Terra William PA-C - Last Filed: 12/03/22 13:28> Social History household members: spouse Smoking Status: Never smoker alcohol intake: current Smoking Status: Never smoker alcohol intake frequency: holidays/special occasions only Alcohol type: beer Substance Use Type: does not use Exam <Terra William PA-C - Last Filed: 12/03/22 13:28> Narrative Exam Narrative: GENERAL: [72] year old patient appears stated age. Well-developed patient, in mild distress. HEAD: Atraumatic. Normocephalic. EYES: Pupils equal round and reactive. Extraocular motions intact. No scleral icterus. No injection or drainage. ENT: Nose without bleeding, purulent drainage. Throat without erythema, tonsillar hypertrophy or exudate. Airway patent. NECK: Trachea midline. Non tender CARDIOVASCULAR: Regular rate and rhythm without murmurs, gallops, or rubs. RESPIRATORY: Clear to auscultation. Breath sounds equal bilaterally. No wheezes, rales, or rhonchi. GASTROINTESTINAL: Abdomen soft, non-tender, nondistended. EXTREMITIES: No edema or joint tenderness. BACK: Nontender without deformity or crepitance. No flank tenderness. NEURO: AOx3. SKIN: No rash or erythema of visible areas Initial Vital Signs Initial Vital Signs: Vital Signs Temperature 99.5 F 12/03/22 12:18 Pulse Rate 70 12/03/22 12:18 Respiratory Rate 17 12/03/22 12:18 Blood Pressure 161/78 H 12/03/22 12:18 Pulse Oximetry 99 12/03/22 12:18 Oxygen Delivery Method Room Air 12/03/22 12:18 <Yvette Reddy MD - Last Filed: 12/03/22 19:15> Initial Vital Signs Initial Vital Signs: Vital Signs Temperature 99.5 F 12/03/22 12:18 Pulse Rate 70 12/03/22 12:18 Respiratory Rate 17 12/03/22 12:18 Blood Pressure 161/78 H 12/03/22 12:18 Pulse Oximetry 99 12/03/22 12:18 Oxygen Delivery Method Room Air 12/03/22 12:18 Course <Terra William PA-C - Last Filed: 12/03/22 13:28> Orders Ordered: ED Orders 12/03/22 12:16 COVID19 -Nasal RAPID Stat Vital Signs Vital signs: Vital Signs - 8 hr 12/03/22 12:18 12/03/22 13:40 Temperature 99.5 F Pulse Rate 70 63 Respiratory Rate 17 Blood Pressure 161/78 H 133/60 Pulse Oximetry 99 97 Oxygen Delivery Method Room Air Room Air <Yvette Reddy MD - Last Filed: 12/03/22 19:15> Orders Ordered: ED Orders 12/03/22 12:16 COVID19 -Nasal RAPID Stat Vital Signs Vital signs: Vital Signs - 8 hr 12/03/22 12:18 12/03/22 13:40 Temperature 99.5 F Pulse Rate 70 63 Respiratory Rate 17 Blood Pressure 161/78 H 133/60 Pulse Oximetry 99 97 Oxygen Delivery Method Room Air Room Air MDM - URI/Sore Throat <Terra William PA-C - Last Filed: 12/03/22 13:28> Lab Data Labs: Lab Results 12/03/22 Range/Units 12:16 SARS-CoV-2 (PCR) Positive H (Negative) MDM Narrative Medical decision making narrative: 72-year-old male presents with acute respiratory symptoms including sore throat, chills, achy, cough. Denies fever. Also has fatigue. He denies shortness of breath, chest pain, altered mental status. Differential includes COVID, flu, strep throat, acute URI, common cold. Will start with COVID test and if negative will complete a respiratory panel as patient really wants to know cause of his symptoms. Vital signs are stable and reassuring. Patient appears well and has no signs of acute distress. His examination is unremarkable. There is no indication for further testing at this time such as chest x-ray. COVID test positive. Patient is having mild symptoms at this time with no signs of distress. We discussed symptomatic care at home. Patient's had questions about Paxlovid we discussed potential risks versus benefits and ultimately decided to avoid this medication at this time. Patient also has elevated BP with a chronic diagnosis of hypertension. He takes his medication daily. States he monitors his blood pressure twice a day at home and it is always in the 120s. He denies any symptoms such as headache, vision change, chest pain, edema. Will have patient continue to monitor BP at home and follow-up with PCP if remaining elevated with ER precautions discussed if he develops any associated symptoms. <Yvette Reddy MD - Last Filed: 12/03/22 19:15> Lab Data Labs: Lab Results 12/03/22 Range/Units 12:16 SARS-CoV-2 (PCR) Positive H (Negative) Discharge Plan Departure Patient Disposition: Home Clinical Impression: COVID-19, Hypertension Instructions: DI for COVID-19 (Suspected or Confirmed ), COVID-19 Activity Restrictions/Additional Instructions: Today you have been diagnosed with a COVID-19 infection. Your vital signs are unremarkable and your exam shows no signs of distress or severe infection. We discussed symptomatic care for COVID-19. We also discussed that Paxlovid is not recommended at this time due to potential for rebound COVID. Alternate Tylenol 500 mg and ibuprofen 600 mg as needed for your aches and sore throat. Please rest as much as possible and hydrate. We discussed signs and symptoms of worsening condition that would warrant a return visit to the ED. please follow-up with your PCP if your blood pressure readings continue to be high at home. Continue taking your BP medication as prescribed. Prescriptions: New ibuprofen 600 mg tablet 600 mg PO Q8H PRN (Reason: pain or sore throat) Qty: 20 0RF No Action allopurinol 300 mg tablet 300 mg PO DAILY levothyroxine 100 mcg tablet 100 mcg PO DAILY losartan 50 mg tablet 50 mg PO DAILY simvastatin 20 mg tablet 20 mg PO DAILY Thalitone 15 mg tablet 15 mg PO DAILY Referrals: Lottie Durant DO [Primary Care Provider] - Stand Alone Forms: Patient Portal/API <Yvette Reddy MD - Last Filed: 12/03/22 19:15> Cosign ED Attending Cosignature Attestation: I did not see this patient. I was available at all times for consultation
[2022-12-03 13:40] VITALS: BP 133/60; PULSE 63; O2SAT 97
== END 2022-12-03 13:34 | disposition home or self-care (01) ==
PROVIDERS: Student in an Organized Health Care Education/Training Program; Emergency Provider Physician Assistant; PCP Student in an Organized Health Care Education/Training Program
DX: U07.1 COVID-19 (principal); I10 Essential (primary) hypertension
CPT/HCPCS: 87635; 99281; 99282; C9803

== ENCOUNTER → 2023-03-04 11:14 | Outpatient (CLI) | payer MEDICARE, BC, OTHER, SELFPAY ==
[2022-01-02 12:24] VITALS: BMI 34.0
[2023-03-04 12:07] LABS: Add Manual Diff / Slide Review NO; Basophils Absolute Auto 0 /uL (0-100); Basophils Percent Auto 0.4 % (0-2); Eosinophils Absolute Auto 200 /uL (0-450); Eosinophils Percent Auto 3.9 % (2-4); Hematocrit 36.3 % (41-53); Hemoglobin 12.7 g/dL (13.5-17.5); Lymphocytes Absolute Auto 800 /uL (1100-4500); Lymphocytes Percent Auto 18.2 % (25-40); Mean Corpuscular HGB Conc 34.9 % (30-36); Mean Corpuscular Hemoglobin 30.4 PG (26-34); Mean Corpuscular Volume 87.2 fL (80-100); Monocytes Absolute Auto 400 /uL (0-900); Monocytes Percent Auto 9.3 % (3-14); Neutrophils Absolute Auto 3000 /uL (1500-7000); Neutrophils Percent Auto 68.2 % (50-75); Platelet Count 234 X10^3/uL (150-400); Red Blood Cell Count 4.16 X10^6/uL (4.5-5.9); Red Cell Distribution Width 13.2 % (11.6-14.8); White Blood Cell Count 4.5 X10^3/uL (4.5-11.0)
[2023-03-04 12:23] LABS: Alanine Aminotransferase 15 IU/L (<50); Albumin 4.1 g/dL (3.5-5.0); Albumin Globulin Ratio 1.3 (1.0-2.8); Alkaline Phosphatase 62 U/L (38-126); Aspartate Aminotransferase 25 IU/L (17-59); BUN Creatinine Ratio 18.7 (6-22); Bilirubin Total 0.9 mg/dL (0.2-1.3); Blood Urea Nitrogen 25 mg/dL (9-20); Calcium 9.2 mg/dL (8.4-10.2); Carbon Dioxide 29 mmol/L (22-32); Chloride 101 mmol/L (98-107); Cholesterol 198 mg/dL (140-199); Estimated Glomerular Filt Rate 56 mL/min (>60); Globulin 3.1 g/dL (1.7-4.1); Glucose 99 mg/dL (80-110); HDL Cholesterol 41 mg/dL (40-60); HEMOLYSIS < 15 (0-50); LDL Cholesterol Calculated 138 mg/dL (<100); Potassium 3.5 mmol/L (3.4-5.1); Sodium 137 mmol/L (137-145); Total Protein 7.2 g/dL (6.3-8.2); Triglycerides 96 mg/dL (35-150); Uric Acid 10.8 mg/dL (3.5-8.5)
[2023-03-04 12:50] LABS: Prostate Specific Antigen Scrn 0.661 ng/mL (0.1-4.0)
[2023-03-04 12:52] LABS: TSH w/ Reflex to FT4 0.45 uIU/mL (0.47-4.68)
[2023-03-04 13:16] LABS: Free T4, Direct Thyroxine 1.59 ng/dL (0.78-2.19)
== END ==
PROVIDERS: PCP Student in an Organized Health Care Education/Training Program; Referring Provider Student in an Organized Health Care Education/Training Program; Visit Provider Student in an Organized Health Care Education/Training Program
DX: Z12.5 Encounter for screening for malignant neoplasm of prostate (principal); I10 Essential (primary) hypertension; E78.49 Other hyperlipidemia; M1A.9XX0 Chronic gout, unspecified, without tophus (tophi); E03.9 Hypothyroidism, unspecified
CPT/HCPCS: 36415; 80053; 80061; 84439; 84443; 84550; 85025; G0103

== ENCOUNTER → 2023-04-04 10:25 | Outpatient (CLI) | payer MEDICARE, BC, OTHER, SELFPAY ==
[2022-01-02 12:24] VITALS: BMI 34.0
--- NOTE | 2023-04-04 10:28 | DI.CT.S_ITS ---
PROCEDURE: CT SOFT TISSUE NECK W CON INDICATIONS: MALIGNANT NEOPLASM OF OROPHARYNX, SYNCOPE COLLAPSE TECHNIQUE: After the administration of intravenous contrast, 3.0 mm axial sections acquired from the sella to the aortic arch. Additional oblique axial 3.0 mm sections acquired through the pharynx. 3 mm thick coronal and sagittal reformats were generated. For radiation dose reduction, the following was used: automated exposure control. COMPARISON: [facility], CT, CT SOFT TISSUE NECK W CON, 01/02/2022, 14:23. Outside Facility, RG, CT SOFT TISSUE NECK WITH CONTRAST, 08/01/2022, 10:33. FINDINGS: Image quality: Excellent. Lymph nodes: No enlarged lymph nodes seen throughout the neck. Vessels: Visualized vasculature appears patent. Neck spaces: No distinct mass is identified. Previously identified asymmetric appearance including soft tissue thickening and enhancement within the right aryepiglottic fold is stable compared to prior exam. There is unchanged thickening of the epiglottis likely related to post treatment sequela. Glands: The parotid and submandibular glands appear normal. Thyroid gland is unremarkable. Miscellaneous: Visualized brain and orbits appear normal. Lung apices appear clear. Superficial soft tissues appear normal. Bones: No suspicious bony lesions. Visualized sinuses and mastoids appear unremarkable. IMPRESSION: Stable interval exam demonstrating asymmetric thickening in the right aryepiglottic fold suspected to be related to treatment sequela as well as thickening of the epiglottis. No new mass is identified. Dictated by: Brittani Lord M.D. on 04/10/2023 at 16:25 Approved by: Brittani Lord M.D. on 04/10/2023 at 16:27
--- NOTE | 2023-04-04 10:28 | DI.CT.S_ITS ---
PROCEDURE: CT CHEST W CON INDICATIONS: MALIGNANT NEOPLASM OF OROPHARYNX, SYNCOPE COLLAPSE TECHNIQUE: After the administration of intravenous contrast, 5 mm thick sections acquired from the pulmonary apices to the posterior costophrenic angles. 1 mm axial lung, 5 mm thick coronal and sagittal reformats and 7 mm axial MIP were acquired. For radiation dose reduction, the following was used: automated exposure control, adjustment of mA and/or kV according to patient size. COMPARISON: [facility], CT, CT CHEST W CON, 01/02/2022, 14:23. FINDINGS: Image quality: Diagnostic. Lower Neck: No enlarged lymph nodes. Thyroid: No thyroid nodules which require sonographic follow up, per consensus guidelines. Axillae: No enlarged lymph nodes. Chest Wall: Unremarkable. Bones: There is DISH throughout the thoracic spine. No suspicious bony lesions. Lungs and Pleura: No pneumothorax or pleural effusions. No consolidation or suspicious nodules. Heart: Heart size is normal. No pericardial effusion. Thoracic Vessels: The aorta and pulmonary arteries demonstrate normal size. Mediastinum and Alexa: No enlarged lymph nodes. Esophagus: No wall thickening. No hiatal hernia. Upper Abdomen: Visualized upper abdomen solid organs and bowel loops appear normal. IMPRESSION: 1. No suspicious pulmonary lesions or acute airspace opacities. Dictated by: Ifrah Mckinnon M.D. on 04/04/2023 at 13:12 Approved by: Ifrah Mckinnon M.D. on 04/04/2023 at 13:20
== END ==
PROVIDERS: PCP Student in an Organized Health Care Education/Training Program; Referring Provider Physician Assistant; Visit Provider Physician Assistant
DX: C10.9 Malignant neoplasm of oropharynx, unspecified; I89.0 Lymphedema, not elsewhere classified
CPT/HCPCS: 70491; 71260; Q9967

== ENCOUNTER → 2024-01-14 11:57 | Outpatient (CLI) | payer MEDICARE, BC, OTHER, SELFPAY ==
[2022-01-02 12:24] VITALS: BMI 34.0
[2024-01-14 13:00] LABS: Albumin 4.4 g/dL (3.5-5.0); BUN Creatinine Ratio 16.4 (6-22); Blood Urea Nitrogen 24 mg/dL (9-20); Carbon Dioxide 26 mmol/L (22-32); Chloride 105 mmol/L (98-107); Estimated Glomerular Filt Rate 50 mL/min (>60); Glucose 98 mg/dL (80-110); HEMOLYSIS < 15 (0-50); Potassium 3.8 mmol/L (3.4-5.1); Sodium 140 mmol/L (137-145)
[2024-01-14 13:51] LABS: Vitamin B12 Reflex MMA if <400 594 pg/mL (239-931)
== END ==
PROVIDERS: PCP Student in an Organized Health Care Education/Training Program; Referring Provider Student in an Organized Health Care Education/Training Program; Visit Provider Student in an Organized Health Care Education/Training Program
DX: E53.8 Deficiency of other specified B group vitamins (principal); M1A.9XX0 Chronic gout, unspecified, without tophus (tophi)
CPT/HCPCS: 36415; 80069; 82607; 82784; 83516; 86340

== ENCOUNTER → 2024-03-04 10:55 | Outpatient (CLI) | payer MEDICARE, BC, OTHER, SELFPAY ==
[2022-01-02 12:24] VITALS: BMI 34.0
[2024-03-04 11:55] LABS: BUN Creatinine Ratio 15.2 (6-22); Blood Urea Nitrogen 23 mg/dL (9-20); Calcium 9.1 mg/dL (8.4-10.2); Carbon Dioxide 30 mmol/L (22-32); Chloride 102 mmol/L (98-107); Estimated Glomerular Filt Rate 48 mL/min (>60); Glucose 100 mg/dL (80-110); HEMOLYSIS < 15 (0-50); Potassium 3.8 mmol/L (3.4-5.1); Sodium 137 mmol/L (137-145); Uric Acid 8.5 mg/dL (3.5-8.5)
== END ==
PROVIDERS: PCP Student in an Organized Health Care Education/Training Program; Referring Provider Student in an Organized Health Care Education/Training Program; Visit Provider Student in an Organized Health Care Education/Training Program
DX: M1A.9XX0 Chronic gout, unspecified, without tophus (tophi) (principal)
CPT/HCPCS: 36415; 80048; 84550

== ENCOUNTER → 2024-04-21 15:51 | Outpatient (CLI) | payer MEDICARE, BC, OTHER, SELFPAY ==
[2022-01-02 12:24] VITALS: BMI 34.0
[2024-04-21 16:52] LABS: Albumin 4.5 g/dL (3.5-5.0); BUN Creatinine Ratio 19.6 (6-22); Blood Urea Nitrogen 30 mg/dL (9-20); Calcium 8.9 mg/dL (8.4-10.2); Carbon Dioxide 26 mmol/L (22-32); Chloride 105 mmol/L (98-107); Estimated Glomerular Filt Rate 47 mL/min (>60); Glucose 104 mg/dL (80-110); HEMOLYSIS < 15 (0-50); Phosphorous 3.5 mg/dL (2.3-3.7); Potassium 3.8 mmol/L (3.4-5.1); Sodium 140 mmol/L (137-145); Uric Acid 7.7 mg/dL (3.5-8.5)
== END ==
PROVIDERS: PCP Student in an Organized Health Care Education/Training Program; Referring Provider Student in an Organized Health Care Education/Training Program; Visit Provider Student in an Organized Health Care Education/Training Program
DX: M1A.9XX0 Chronic gout, unspecified, without tophus (tophi) (principal)
CPT/HCPCS: 36415; 80069; 84550

== ENCOUNTER → 2024-05-27 11:02 | Outpatient (CLI) | payer MEDICARE, BC, OTHER, SELFPAY ==
[2022-01-02 12:24] VITALS: BMI 34.0
[2024-05-27 12:25] LABS: Albumin 4.6 g/dL (3.5-5.0); BUN Creatinine Ratio 15.3 (6-22); Blood Urea Nitrogen 23 mg/dL (9-20); Calcium 9.1 mg/dL (8.4-10.2); Carbon Dioxide 28 mmol/L (22-32); Chloride 103 mmol/L (98-107); Estimated Glomerular Filt Rate 48 mL/min (>60); Glucose 93 mg/dL (80-110); HEMOLYSIS < 15 (0-50); Potassium 4.3 mmol/L (3.4-5.1); Sodium 141 mmol/L (137-145); Uric Acid 6.5 mg/dL (3.5-8.5)
== END ==
PROVIDERS: PCP Student in an Organized Health Care Education/Training Program; Referring Provider Student in an Organized Health Care Education/Training Program; Visit Provider Student in an Organized Health Care Education/Training Program
DX: M1A.9XX0 Chronic gout, unspecified, without tophus (tophi) (principal)
CPT/HCPCS: 36415; 80069; 84550

== ENCOUNTER → 2024-08-07 12:49 | Outpatient (CLI) | payer MEDICARE, BC, OTHER, SELFPAY ==
[2022-01-02 12:24] VITALS: BMI 34.0
--- NOTE | 2024-08-07 12:51 | DI.US.S_ITS ---
PROCEDURE: US PERIPH VENOUS LOW EXTREM RT INDICATIONS: Right calf pain TECHNIQUE: Real-time imaging, as well as color and pulse Doppler interrogation, were performed of the lower extremity deep veins from the inguinal ligament to the popliteal fossa, with documentation of the visualized calf veins. COMPARISON: None. FINDINGS: The common femoral, femoral, popliteal, and the visualized calf veins are normally compressible, and free of intraluminal thrombus. Color and pulse Doppler demonstrate normal phasic intraluminal flow. There is normal augmentation response to distal compression maneuver. Superficial thrombophlebitis is seen, which is seen within the short saphenous vein and is nonocclusive and extends 2.4 cm from the popliteal vein. There is nearly 1 second of reflux seen within the short saphenous vein. IMPRESSION: No findings of lower extremity deep venous thrombosis. Superficial venous thrombophlebitis can be seen. Nearly 1 second of venous reflux noted. Dictated by: Channing Emanuel M.D. on 08/07/2024 at 13:13 Approved by: Channing Emanuel M.D. on 08/07/2024 at 13:15
== END ==
LOC: US 12:50
PROVIDERS: PCP Student in an Organized Health Care Education/Training Program; Referring Provider Nurse Practitioner Family; Visit Provider Nurse Practitioner Family
DX: I80.01 Phlebitis and thrombophlebitis of superficial vessels of right lower extremity (principal); I87.2 Venous insufficiency (chronic) (peripheral); M79.661 Pain in right lower leg
CPT/HCPCS: 93971

== ENCOUNTER → 2024-08-26 10:36 | Outpatient (CLI) | payer MEDICARE, BC, OTHER, SELFPAY ==
[2022-01-02 12:24] VITALS: BMI 34.0
[2024-08-26 11:36] LABS: Add Manual Diff / Slide Review NO; Basophils Absolute Auto 0 /uL (0-100); Basophils Percent Auto 0.4 % (0-2); Eosinophils Absolute Auto 200 /uL (0-450); Eosinophils Percent Auto 3.6 % (2-4); Hematocrit 39.8 % (41-53); Hemoglobin 13.7 g/dL (13.5-17.5); Lymphocytes Absolute Auto 1000 /uL (1100-4500); Lymphocytes Percent Auto 19.6 % (25-40); Mean Corpuscular HGB Conc 34.5 % (30-36); Mean Corpuscular Hemoglobin 31.1 PG (26-34); Mean Corpuscular Volume 90.4 fL (80-100); Monocytes Absolute Auto 500 /uL (0-900); Monocytes Percent Auto 9.6 % (3-14); Neutrophils Absolute Auto 3400 /uL (1500-7000); Neutrophils Percent Auto 66.8 % (50-75); Platelet Count 231 X10^3/uL (150-400); Red Blood Cell Count 4.41 X10^6/uL (4.5-5.9); Red Cell Distribution Width 14.5 % (11.6-14.8); White Blood Cell Count 5.1 X10^3/uL (4.5-11.0)
[2024-08-26 11:59] LABS: Alanine Aminotransferase 26 IU/L (<50); Albumin 4.4 g/dL (3.5-5.0); Albumin Globulin Ratio 1.6 (1.0-2.8); Alkaline Phosphatase 83 U/L (38-126); Aspartate Aminotransferase 31 IU/L (17-59); Bilirubin Total 0.8 mg/dL (0.2-1.3); Blood Urea Nitrogen 29 mg/dL (9-20); Calcium 8.9 mg/dL (8.4-10.2); Carbon Dioxide 21 mmol/L (22-32); Chloride 106 mmol/L (98-107); Cholesterol 131 mg/dL (140-199); Estimated Glomerular Filt Rate 53 mL/min (>60); Globulin 2.7 g/dL (1.7-4.1); Glucose 99 mg/dL (70-99); HDL Cholesterol 37 mg/dL (40-60); HEMOLYSIS < 15 (0-50); LDL Cholesterol Calculated 72 mg/dL (<100); Potassium 4.1 mmol/L (3.4-5.1); Sodium 139 mmol/L (137-145); Total Protein 7.1 g/dL (6.3-8.2); Triglycerides 108 mg/dL (35-150); Uric Acid 6.9 mg/dL (3.5-8.5)
[2024-08-26 12:28] LABS: Prostate Specific Antigen 0.815 ng/mL (0.10-4.00)
[2024-08-26 12:29] LABS: Thyroid Stimulating Hormone 0.494 uIU/mL (0.47-4.68)
[2024-08-26 12:47] LABS: Vitamin B12 Reflex MMA if <400 488 pg/mL (239-931)
[2024-08-26 15:49] LABS: Creatinine Urine Random 129.43 mg/dL
[2024-08-26 15:55] LABS: Microalbumin Urine Random < 0.6 mg/dL (0-1.6)
[2024-08-26 19:24] LABS: Free T4, Direct Thyroxine 1.57 ng/dL (0.78-2.19)
== END ==
PROVIDERS: PCP Student in an Organized Health Care Education/Training Program; Referring Provider Physician Assistant; Visit Provider Physician Assistant
DX: E03.9 Hypothyroidism, unspecified; E78.49 Other hyperlipidemia; I10 Essential (primary) hypertension; M10.9 Gout, unspecified; E53.8 Deficiency of other specified B group vitamins; Z12.5 Encounter for screening for malignant neoplasm of prostate
CPT/HCPCS: 36415; 80053; 80061; 82043; 82570; 82607; 84153; 84439; 84443; 84550; 85025; G0103

== ENCOUNTER → 2024-09-28 06:56 | Outpatient (CLI) | payer MEDICARE, BC, OTHER, SELFPAY ==
[2022-01-02 12:24] VITALS: BMI 34.0
--- NOTE | 2024-09-28 06:57 | DI.US.S_ITS ---
PROCEDURE: US PERIP VENOUS LOW EXTREM RT INDICATIONS: Thrombophlebitis TECHNIQUE: Real-time imaging, as well as color and pulse Doppler interrogation, were performed of the lower extremity deep veins from the inguinal ligament to the popliteal fossa, with documentation of the visualized calf veins. Fifteen images. COMPARISON: [facility], [facility] VENOUS LOW EXTREM RT, 08/07/2024, 13:38. FINDINGS: The common femoral, femoral, popliteal, and the visualized calf veins are normally compressible, and free of intraluminal thrombus. Color and pulse Doppler demonstrate normal phasic intraluminal flow. There is normal augmentation response to distal compression maneuver. IMPRESSION: No ultrasound evidence of deep vein thrombosis right lower extremity. The previously noted superficial vein thrombosis on the prior exam is not evident on this exam. Dictated by: Evert Gupta M.D. on 09/28/2024 at 8:32 Approved by: Evert Gupta M.D. on 09/28/2024 at 8:34
== END ==
PROVIDERS: PCP Student in an Organized Health Care Education/Training Program; Referring Provider Student in an Organized Health Care Education/Training Program; Visit Provider Student in an Organized Health Care Education/Training Program
DX: I80.01 Phlebitis and thrombophlebitis of superficial vessels of right lower extremity (principal)
CPT/HCPCS: 93971